=== PATIENT | male | born 1970 | race Caucasian/White ===

== ENCOUNTER 2018-04-19 16:52 | Observation (INO) | payer OTHER ==
[2018-04-19 17:26] LABS: #Eosinphils 0.1 thou/uL (0.0-0.7); #Lymphocytes 1.4 thou/uL (1.20-3.40); #Monocytes 0.5 thou/uL (0.11-0.59); #Neutrophils 3.5 thou/uL (1.40-6.50); %Basophils 0.2 % (0.0-1.0); %Eosinophils 0.9 % (0.0-10.0); %Lymphocytes 25.8 % (21.0-51.0); %Monocytes 9.3 % (0.0-10.0); %Neutrophils 63.8 % (42.0-75.0); Hemoglobin 15.3 g/dL (14.0-18.0); Mean Corpuscular HGB CONC 34.5 g/dL (32.0-36.0); Mean Corpuscular Volume 98.4 fL (78.0-98.0); Mean Platelet Volume 7.3 fL (7.4-10.4); Platelet Count 208 thou/uL (130-400); Red Blood Cell (RBC) Count 4.51 mill/uL (4.70-6.10); White Blood Cell (WBC) Count 5.5 thou/uL (4.8-10.8)
--- NOTE | 2018-04-19 17:36 | RAD ---
PORTABLE UPRIGHT FRONTAL CHEST RADIOGRAPH: 04/19/18 COMPARISON: 03/30/17. HISTORY: Chest pain. FINDINGS: No pneumothorax, pleural fluid, focal consolidation or alveolar edema. Heart and mediastinal contours are unremarkable. There is degenerative change involving bilateral acromioclavicular joints. IMPRESSION: No acute findings. POS: [facility]
[2018-04-19 17:50] LABS: ALT (SGPT) 24 U/L (8-55); AST (SGOT) 23 U/L (5-34); Albumin 4.6 g/dL (3.5-5.0); Alkaline Phosphatase 119 U/L (40-150); Anion Gap 15 mmol/L (10-20); BUN (Urea Nitrogen) 10 mg/dL (8.9-20.6); CK (CPK) 224 U/L (30-200); Calc. Creatinine Clearance 0 mL/min (70-130); Calcium 9.4 mg/dL (7.8-10.44); Carbon Dioxide 21 mmol/L (22-29); Chloride 108 mmol/L (98-107); Estimated GFR-MDRD Greater than 90; Globulin 2.6 g/dL (2.4-3.5); Glucose 86 mg/dL (70-105); Lipase 41 U/L (8-78); Potassium 4.2 mmol/L (3.5-5.1); Protein, Total 7.2 g/dL (6.0-8.3); Sodium 140 mmol/L (136-145)
[2018-04-19 17:53] LABS: CKMB 2.3 ng/mL (0-6.6); Troponin I Less than 0.010 ng/mL (< 0.028)
[2018-04-19] MEDS ORDERED: Nitroglycerin 2% Ointment 1 INCH/1 GM Packet ONE (18:52)
[2018-04-19] MEDS ORDERED: Acetaminophen 500 MG TAB ONE (18:52)
[2018-04-19] MEDS ORDERED: Ondansetron HCl/PF 4 MG/2 ML Vial IVP PRN (21:51)
[2018-04-19] MEDS ORDERED: Ondansetron ODT 4 MG TAB SL PRN (21:51)
[2018-04-19] MEDS ORDERED: Acetaminophen 325 MG TAB PO PRN (21:51)
[2018-04-19 22:05] VITALS: BMI 29.0
[2018-04-19 22:09] LABS: Troponin I Less than 0.010 ng/mL (< 0.028)
--- NOTE | 2018-04-19 23:24 | PDOC.FPRHP ---
- History of Present Illness Chief Complaint: chest pain History of Present Illness: 47 yo M [facility] with a PMH of ND, stent placement in Sep 2017 ([facility]), HTN, HLD present for sharp 10/10 pain in L chest pain radiating down the left arm and into left neck. Pt ascribes numbness, burning, and decreased strength in L arm. He has had the pain for the past two months, and it worsened this afternoon. He went to the [facility] and his blood pressure was high. He was given nitroglycerin which reduced the pain. Associated sx is sweating. Laying on the floor helps the pain to go away. Pain worse when he stands and with ambulating. In the ED his troponins, EKG, and CXR were all negative. ED Course: In the ER, his troponins, EKG, and CXR were all negative, and CBC and BMP were normal. - Allergies/Adverse Reactions Allergies Allergy/AdvReac Type Severity Reaction Status Date / Time Cephalosporins Allergy Verified 01/20/15 01:32 influenza virus vaccine, Allergy Verified 04/19/18 22:08 specific [influenza virus vacc,specific] iodine Allergy Verified 01/20/15 01:32 Penicillins Allergy Verified 04/19/18 22:08 pneumococcal vaccine Allergy Verified 01/20/15 01:32 Sulfa (Sulfonamide Allergy Verified 01/20/15 03:43 Antibiotics) Tetanus Vaccines and Toxoid Allergy Verified 01/20/15 01:32 [Tetanus Vaccines & Toxoid] - Home Medications Medication Instructions Recorded Confirmed Type Aspirin [Aspirin EC] 81 mg PO DAILY 01/20/15 04/19/18 History Atorvastatin Calcium 80 mg PO HS 01/20/15 04/19/18 History Clopidogrel Bisulfate [Plavix] 75 mg PO QAM #0 tab 01/20/15 04/19/18 Rx Nitroglycerin [Nitrostat] 0.4 mg SL Q5MIN PRN 01/20/15 04/19/18 History Omeprazole [Prilosec] 20 mg PO BID 01/20/15 04/19/18 History Ranitidine HCl 150 mg PO HS 01/20/15 04/19/18 History Terazosin HCl [Hytrin] 5 mg PO HS 01/20/15 04/19/18 History Carvedilol [Coreg] 3.125 mg PO BID 04/19/18 04/19/18 History Isosorbide Mononitrate [Isosorbide 60 mg PO DAILY 04/19/18 04/19/18 History Mononitrate ER] Lisinopril [Zestril] 5 mg PO DAILY 04/19/18 04/19/18 History Sertraline HCl [Zoloft] 50 mg PO DAILY 04/19/18 04/19/18 History - History PMHx: ND x5, stent placement in Dec in [facility], HLD, Gerd, HTN, BPH PSHx: L knee surgery FHx: DM in aunts and uncles; Maternal gma ND, paternal gma with pacemaker, grandparents of ND; Father nasal cancer Social: 16 yr pack hx (from age [age]); No alcohol; hx of drug abuse heroin, cocaine, marinua - Review of Systems General: reports: night sweats. denies: fever/chills, weight/appetite/sleep changes Eyes: reports: eye pain (occasional Rt eye pain from previous eye injury) ENT: denies: nasal congestion, rhinorrhea Respiratory: reports: exercise intolerance. denies: cough, congestion, shortness of breath Cardiovascular: reports: chest pain, palpitation. denies: edema Gastrointestinal: reports: nausea, constipation. denies: vomiting, diarrhea, abdominal pain, GI bleeding Genitourinary: reports: incontinence. 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), other ( Bilateral temporal headache occasionally) Psychological: reports: depression (well controlled with medication) - Vital signs BP: [153/91] HR: [82] RR: [18] Tmax: [98.2] Pox: [96]% on [RA] Wt: [86.5] - Physical Exam Constitutional: NAD, awake, alert and oriented HEENT: normocephalic and atraumatic, PERRLA, no scleral icterus, MMM, oropharynx clear Neck: supple, no LAD Chest: no lesions, other (reproducible pain to left of sternum on palpation) Heart: RRR, normal S1/S2, no murmurs/rubs/gallops, pulses present, no edema Lungs: CTAB, no respiratory distress, good air movement, no rales/rhonchi, no wheezing, no retractions Abdomen: soft, bowel sounds present, no masses/distention -Abdomen: small midline hernia superior to umbilicus, LLQ pain on palpation (no rebound pain or rigidity) Musculoskeletal: normal structure, normal tone Neurological: normal sensation, other (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 4/5, right fishing vessel captain strength 5/5.) Skin: good turgor, capillary refill <2 seconds, no jaundice, other (mild clubbing of nails) Heme/Lymphatic: no unusual bruising or bleeding Psychiatric: normal mood and affect, good judgment and insight, intact recent and remote memory FMR H&P: Results - Labs Result Diagrams: 04/19/18 17:19 04/19/18 17:19 Lab results: WBC 5.5 thou/uL (4.8-10.8) 04/19/18 17:19 Hgb 15.3 g/dL (14.0-18.0) 04/19/18 17:19 Hct 44.4 % (42.0-52.0) 04/19/18 17:19 MCV 98.4 fL (78.0-98.0) H 04/19/18 17:19 Plt Count 208 thou/uL (130-400) 04/19/18 17:19 Neutrophils % 63.8 % (42.0-75.0) 04/19/18 17:19 Sodium 140 mmol/L (136-145) 04/19/18 17:19 Potassium 4.2 mmol/L (3.5-5.1) 04/19/18 17:19 Chloride 108 mmol/L (98-107) H 04/19/18 17:19 Carbon Dioxide 21 mmol/L (22-29) L 04/19/18 17:19 BUN 10 mg/dL (8.9-20.6) 04/19/18 17:19 Creatinine 0.84 mg/dL (0.6-1.3) 04/19/18 17:19 Glucose 86 mg/dL (70-105) 04/19/18 17:19 Calcium 9.4 mg/dL (7.8-10.44) 04/19/18 17:19 Total Bilirubin 1.0 mg/dL (0.2-1.2) 04/19/18 17:19 AST 23 U/L (5-34) 04/19/18 17: ALT 24 U/L (8-55) 04/19/18 17:19 Alkaline Phosphatase 119 U/L (40-150) 04/19/18 17:19 Creatine Kinase 224 U/L (30-200) H 04/19/18 17:19 CK-MB (CK-2) 2.3 ng/mL (0-6.6) 04/19/18 17:19 B-Natriuretic Peptide 34.4 pg/mL (0-100) 04/19/18 17: Serum Total Protein 7.2 g/dL (6.0-8.3) 04/19/18 17: Albumin 4.6 g/dL (3.5-5.0) 04/19/18 17: Lipase 41 U/L (8-78) 04/19/18 17:19 - EKG Interpretation EKG: sinus rhythm - Radiology Interpretation Chest x-ray Status: report reviewed by me (normal) FMR H&P: A/P - Problem List (1) Stable angina Status: Acute Code(s): I20.8 - OTHER FORMS OF ANGINA PECTORIS - Plan 47 yo M with Typical chest pain vs costochondritis 1. Typical Chest Pain -CXR and EKG nl, trop neg x2 -Heart score 5 -monitor in Telemetry Obs -get records from [facility] -consider stress test in the morning -hold coreg -Restart home medications 2. HTN -coreg held for potential stress test in morning 3. GERD 4. HLD -fasting lipid panel in AM 5. BPH Full code FMR H&P: Upper Level - Pertinent history 47 yr old white male with PMH of CAD s/p 4 stents, HTN, GERD who presents for chest pain. Patient states this chest pain has been going on for months. Earlier today it woke him from his sleep, which it often does most recently last night. He describes the pain as someone stabbing him in his left chest. It radiates to his left arm. He gets diaphoretic but also reports frequent diaphoresis in his sleep. Denies vomiting or nausea. He states it does get better with nitro, but not completely relieved. He reports having a nerve study for the pain in his arm. - Pertinent findings Gen: NAD, resting comfortably in bed. Chest: Reproducible chest pain in mid left sternal border Cardiac: RRR, no M/R/G Lungs: CTAB, no wheezes, rhales, rhonchi Abdomen: mild LLQ tenderness, no EXT: no edema in BLE, 2+ post tibial pulses EKG: NSR, no evidence for old ischemia, no acute ST changes. CXR- NAD - Plan Date/Time: 04/19/18 1744 I, [Gabbi Dietz], have evaluated this patient and agree with findings/plan as outlined by technology risk intern resident. Pertinent changes/additions are listed here. 47 yr old Male with chest pain Atypical Chest Pain -reproducible chest pain on exam, patient points to his pain with single finger -troponin x 3 negative, neg EKG -Patient has multiple presentations of similar chest pain and has been transferred to [facility] -consider musculoskeletal vs GERD vs pleurisy -Heart score = 4, with significant history -cont chronic nitrate therapy -will obtain records from recent hospitalization in [facility] [facility]. -hold B barak in case need for stress test -cont home meds -AM FLP CAD s/p 4 stent placement -obtain records -chest pain not typical for ACS -cont Plavix and aspirin HTN -cont home meds with exception of coreg for now BPH -cont terazosin HLD -cont high intensity statin Gerd -cont protonix/ ranitidine Attending Addendum - Attending Addendum Date/Time: 04/21/18 0848 I personally evaluated the patient and discussed the management with Dr. Solis and Dr. Dietz I agree with the History, Examination, Assessment and Plan documented above with any addition or exceptions noted below. 47 yo male with CAD presents with stable angina for ACS rule out. Currently pain is reproducible on exam. Patient does report however that initial pain was relieved with nitro. Will obtain records from last stress/ cath. Continue tele monitoring. Repeat EKG and Chi. Possible stress in AM. Lonny
[2018-04-19] MEDS ORDERED: Nitroglycerin 0.4 MG TAB (25 Tab Bottle) PO PRN (23:43)
[2018-04-19] MEDS ORDERED: Calcium Carbonate 500 MG ChewTAB PO PRN (23:43)
[2018-04-20] MEDS ORDERED: Nitroglycerin 0.4 MG TAB (25 Tab Bottle) SL PRN (00:08)
[2018-04-20 00:20] LABS: Troponin I Less than 0.010 ng/mL (< 0.028)
[2018-04-20] MEDS ORDERED: Atorvastatin Calcium 40 MG TAB PO SCH ×2 (00:20→21:00)
[2018-04-20] MEDS ORDERED: Famotidine 20 MG TAB PO SCH ×2 (00:20→21:00)
[2018-04-20] MEDS ORDERED: Terazosin HCl 5 MG CAP PO SCH ×2 (00:20→21:00)
[2018-04-20 05:12] LABS: Cardiac Risk 2.9 (Less than 4.5)
--- NOTE | 2018-04-20 08:51 | PDOC.FM ---
- Subjective Subjective: Patient reports that he still has chest pain in the L side of his chest that is a sharp, stabbing pain that radiates to the back associated with a burning pain in his arm. He denies any SOB. He denies any fevers or chills. - Objective MAR Reviewed: Yes Vital Signs & Weight: Vital Signs (12 hours) Temp Pulse Resp BP BP BP Pulse Ox 04/20/18 07:43 97.6 F 69 16 138/77 97 04/20/18 04:22 97.6 F 72 16 135/83 98 04/20/18 02:37 68 18 107/67 96 04/20/18 02:30 88 18 113/62 96 04/20/18 02:14 75 18 132/77 95 04/19/18 23:31 98.2 F 68 16 129/76 95 04/19/18 21:53 98.2 F 82 18 153/91 H 96 Weight Weight 86.5 kg I&O: 04/19/18 04/20/18 04/21/18 06:59 06:59 06:59 Intake Total 480 Balance 480 Result Diagrams: 04/19/18 17:19 04/19/18 17:19 <Gabbi Manzo - Last Filed: 04/20/18 08:49> - Objective Vital Signs & Weight: Vital Signs (12 hours) Temp Pulse Resp BP BP BP Pulse Ox 04/20/18 09:30 97.6 F 69 16 04/20/18 09:27 69 04/20/18 07:43 97.6 F 69 16 138/77 97 04/20/18 04:22 97.6 F 72 16 135/83 98 04/20/18 02:37 68 18 107/67 96 04/20/18 02:30 88 18 113/62 96 04/20/18 02:14 75 18 132/77 95 Weight Weight 86.5 kg I&O: 04/19/18 04/20/18 04/21/18 06:59 06:59 06:59 Intake Total 480 Balance 480 Result Diagrams: 04/19/18 17:19 04/19/18 17:19 <Charanjit Lawrence - Last Filed: 04/20/18 13:06> Phys Exam - Physical Examination Constitutional: NAD HEENT: moist MMs Respiratory: no wheezing, no rales, no rhonchi, clear to auscultation bilateral Cardiovascular: RRR, no significant murmur, no rub tender to palpation over left mid-chest Gastrointestinal: soft, no distention, positive bowel sounds mildly tender in ADRIEL region Musculoskeletal: no edema, pulses present Neurological: non-focal, moves all 4 limbs Psychiatric: normal affect, A&O x 3 Skin: normal turgor, cap refill <2 seconds <Gabbi Manzo - Last Filed: 04/20/18 08:49> Dx/Plan (1) Stable angina Code(s): I20.8 - OTHER FORMS OF ANGINA PECTORIS Status: Acute (2) CAD (coronary artery disease) Code(s): I25.10 - ATHSCL HEART DISEASE OF [place] CORONARY ARTERY W/O ANG PCTRS Status: Acute QualifierTitle: Coronary Disease-Associated Artery/Lesion type: [place] artery [place] vs. transplanted heart: [place] heart Associated angina: with stable angina Qualified Code(s): I25.118 - Atherosclerotic heart disease of [place] coronary artery with other forms of angina pectoris (3) HTN (hypertension) Code(s): I10 - ESSENTIAL (PRIMARY) HYPERTENSION Status: Acute QualifierTitle: Hypertension type: essential hypertension Qualified Code( s): I10 - Essential (primary) hypertension (4) HLD (hyperlipidemia) Code(s): E78.5 - HYPERLIPIDEMIA, UNSPECIFIED Status: Acute QualifierTitle: Hyperlipidemia type: unspecified Qualified Code(s): E78.5 - Hyperlipidemia, unspecified (5) GERD (gastroesophageal reflux disease) Code(s): K21.9 - GASTRO-ESOPHAGEAL REFLUX DISEASE WITHOUT ESOPHAGITIS Status: Acute QualifierTitle: Esophagitis presence: esophagitis presence not specified Qualified Code(s): K21.9 - Gastro-esophageal reflux disease without esophagitis (6) BPH (benign prostatic hyperplasia) Code(s): N40.0 - BENIGN PROSTATIC HYPERPLASIA WITHOUT LOWER URINRY TRACT SYMP Status: Acute QualifierTitle: Lower urinary tract symptom presence: symptoms present Lower urinary tract symptom detail: urinary hesitancy Qualified Code(s): N40.1 - Benign prostatic hyperplasia with lower urinary tract symptoms; R39.11 - Hesitancy of micturition; R39.11 - Hesitancy of micturition (7) Polysubstance abuse Code(s): F19.10 - OTHER PSYCHOACTIVE SUBSTANCE ABUSE, UNCOMPLICATED Status: Acute - Plan Plan: 1. Chest pain 2/2 Stable angina vs costochondritis CXR and EKG nl, trop neg x3. Heart score 4 -monitor in Telemetry Obs -get records from [facility] -Restart home medications -Consult cards due to patient's multiple risk factors and past h/o CAD 2. HTN -cont home meds, but coreg held in case stress is done 3. GERD -cont home meds 4. HLD FLP WNL -Cont home meds 5. BPH -Cont home meds 6. Polysubstance abuse Pt with h/o tobacco, marijuana, cocaine, and heroine abuse. Currently in senior living. -Auditor In Charge <Gabbi Manzo - Last Filed: 04/20/18 08:49> Attending Addendum - Attending Addendum Date/Time: 04/20/18 2527 I personally evaluated the patient and discussed the management with . I agree with and repeated the History, Examination, Assessment and Plan documented above with any addition or exceptions noted below. No pain currently. Unremarkable exam exam some c-c junction tenderness on left and +avalos/neers on left. Await stress results. Continue RF management. Low suspicion for dissection. <Charanjit Lawrence - Last Filed: 04/20/18 13:06>
[2018-04-20] MEDS ORDERED: Enoxaparin Sodium 40 MG/0.4 ML SYRINGE SC SCH (09:00)
[2018-04-20] MEDS: Clopidogrel Bisulfate 75 MG TAB PO SCH (09:27)
[2018-04-20] MEDS: Lisinopril 5 MG TAB PO SCH (09:27)
[2018-04-20] MEDS: Aspirin 81 mg Enteric Coated Tablet PO SCH (09:27)
[2018-04-20] MEDS: Acetaminophen 325 MG TAB PO PRN ×2 (10:12→22:33)
[2018-04-20] MEDS ORDERED: Regadenoson 0.4 MG/5 ML SYRINGE ONE (12:47)
--- NOTE | 2018-04-20 16:26 | EKG ---
Test Reason : Blood Pressure : / mmHG Vent. Rate : 073 BPM Atrial Rate : 073 BPM P-R Int : 142 ms QRS Dur : 102 ms QT Int : 416 ms P-R-T Axes : 055 019 018 degrees QTc Int : 458 ms Normal sinus rhythm Normal ECG Confirmed by MILTON HEBERT ([id number]) on 04/20/2018 4:26:03 PM Referred By: ANDIE BUITRAGO *r Confirmed By:MILTON HEBERT
--- NOTE | 2018-04-20 16:35 | NM ---
CARDIAC SPECT: 04/20/18 HISTORY: 47-year-old male with chest pain. Coronary artery disease. Stent placement. Hypertension. TECHNIQUE: A myocardial perfusion scan is performed using the single isotope one day protocol with technetium 99 m Sestamibi. 9 millicuries was injected intravenously for the rest exam followed by 27 millicuries fo r the stress study. Pharmacologic stress with Lexiscan was monitored and interpreted by Dr. Mcfadden. FINDINGS: Homogeneous tracer distribution is seen in the myocardial segments on stress and rest images without fixed or reversible defects. GATED SPECT LVEF: 64%. WALL MOTION EXAM: Normal. IMPRESSION: Normal myocardial perfusion scan. POS: [facility]
[2018-04-20] MEDS ORDERED: predniSONE 20 MG TAB PO SCH ×2 (18:45→19:00)
[2018-04-20] MEDS ORDERED: Communication Order-Pharmacy FS SCH ×2 (19:00)
[2018-04-20] MEDS: Famotidine 20 MG TAB PO SCH (19:44)
[2018-04-21] MEDS: Famotidine 20 MG TAB PO SCH ×2 (00:49→07:30)
[2018-04-21] MEDS ORDERED: predniSONE 20 MG TAB PO SCH ×4 (01:00→13:00)
--- NOTE | 2018-04-21 01:10 | CON ---
DATE OF CONSULTATION: 04/20/2018 REASON FOR CONSULTATION: Chest pain. HISTORY OF PRESENT ILLNESS: Mr. Cook is a 47-year-old gentleman. [facility]. It feels sharp like a knife or something very sharp sticking him in the chest in left anterior and left posterior. The description is atypical for pain, but he says id entical the pain he had prior to previous stent implants. He has had 4 stents placed. From the note s, he has had stents in the LAD and the right coronary artery in 09/2017. He had stents in the right coronary artery apparently at the hospital in [place]. The patient had subsequent pain since then what thought to be noncardiac. The patient was brought here and said the pain was identical to when he had a stent placed. MEDICATIONS: Please see list. They do include aspirin and Plavix as well as statin therapy, and als o on Protonix. ALLERGIES: Include IODINE. REVIEW OF SYSTEMS: Constitutional: No significant weight gain or loss. Vision: No changes. Heari ng: No changes. Pulmonary: No cough or wheezing. Gastrointestinal: No nausea, vomiting, diarrhea . Skin: No rashes. Neurologic: No unilateral weakness or numbness. Psychiatric: No unusual depr ession or anxiety. PHYSICAL EXAMINATION: GENERAL: A pleasant 47-year-old man in no distress. VITAL SIGNS: Blood pressure 139/76, pulse 68 and regular. HEENT: Eyes, sclerae nonicteric. Mouth, mucous membranes are moist. NECK: Supple, no lymphadenopathy. LUNGS: Clear. No wheezing, rales or rhonchi. CARDIAC: Normal S1, normal S2. There is no murmur, rub or gallop. ABDOMEN: Soft, nontender, no hepatosplenomegaly. EXTREMITIES: Warm, dry. No clubbing or cyanosis. There is no edema. Good peripheral pulses. LABORATORY AND X-RAY FINDINGS: Troponin levels were negative. Stress test was normal. ASSESSMENT: 1. Chest pain, somewhat atypical for angina. He says this is identical to the pain that he had prio r to previous stents implanted. 2. Hypertension. 3. Hypercholesterolemia. PLAN: The patient would like to have the most definitive test. We will proceed to cardiac catheteri zation. Discussed risks of stroke, heart attack, iodine allergy, loss of blood supply to the leg or kidney, stent thrombosis, stent restenosis. He understands and wishes to proceed.
[2018-04-21] MEDS ORDERED: Diazepam 5 MG TAB PO SCH ×2 (05:00→07:00)
[2018-04-21] MEDS ORDERED: Sodium Chloride 0.9% 1,000 ML IV SCH ×2 (07:00)
[2018-04-21] MEDS: Clopidogrel Bisulfate 75 MG TAB PO SCH (07:30)
[2018-04-21] MEDS: Lisinopril 5 MG TAB PO SCH (07:30)
[2018-04-21] MEDS: Aspirin 81 mg Enteric Coated Tablet PO SCH (07:30)
[2018-04-21] MEDS ORDERED: Iopamidol 370 76% 100 ML VIAL ONE (07:49)
[2018-04-21] MEDS ORDERED: Carvedilol 3.125 MG TAB PO SCH (08:00)
[2018-04-21] MEDS ORDERED: Fentanyl 100 MCG/2 ML VIAL ONE (08:16)
[2018-04-21] MEDS ORDERED: Midazolam HCl 2 mg/2 ml Vial ONE (08:17)
[2018-04-21] MEDS ORDERED: Lidocaine 1% (PF) 30 ML VIAL ONE (08:17)
--- NOTE | 2018-04-21 08:49 | PDOC.FM ---
- Subjective Subjective: Patient reports still having some chest pain while lying in bed. It is a sharp, stabbing pain that radiates to his back. He also reports some associated pain that now goes down his left leg. He denies any fevers, chills, SOB. - Objective MAR Reviewed: Yes Vital Signs & Weight: Vital Signs (12 hours) Temp Pulse Resp BP BP BP Pulse Ox 04/21/18 07:48 97.8 F 84 16 04/21/18 07:46 97.4 F L 75 20 121/72 94 L 04/21/18 07:30 84 119/73 04/21/18 04:05 97.8 F 84 16 119/73 94 L 04/21/18 00:40 97.8 F 62 16 122/66 93 L Weight Weight 86.545 kg I&O: 04/20/18 04/21/18 04/22/18 06:59 06:59 06:59 Intake Total 480 1080 Balance 480 1080 Result Diagrams: 04/19/18 17:19 04/19/18 17:19 <Gabbi Manzo - Last Filed: 04/21/18 08:45> - Objective Vital Signs & Weight: Vital Signs (12 hours) Temp Pulse Resp BP BP BP Pulse Ox 04/21/18 11:48 66 16 111/52 L 96 04/21/18 09:50 97.6 F 70 20 104/61 96 04/21/18 09:39 70 16 104/61 04/21/18 07:48 97.8 F 84 16 04/21/18 07:46 97.4 F L 75 20 121/72 94 L 04/21/18 07:30 84 119/73 04/21/18 04:05 97.8 F 84 16 119/73 94 L Weight Weight 86.545 kg I&O: 04/20/18 04/21/18 04/22/18 06:59 06:59 06:59 Intake Total 480 1080 Output Total 900 Balance 480 1080 -900 Result Diagrams: 04/19/18 17:19 04/19/18 17:19 <Jerry Velasquez - Last Filed: 04/21/18 14:30> Phys Exam - Physical Examination Constitutional: NAD HEENT: moist MMs, sclera anicteric Respiratory: no wheezing, no rales, no rhonchi, clear to auscultation bilateral Cardiovascular: RRR, no significant murmur, no rub Gastrointestinal: soft, non-tender, no distention, positive bowel sounds Musculoskeletal: no edema, pulses present Neurological: non-focal, moves all 4 limbs Psychiatric: normal affect, A&O x 3 Skin: normal turgor, cap refill <2 seconds <Gabbi Manzo - Last Filed: 04/21/18 08:45> Dx/Plan (1) Stable angina Code(s): I20.8 - OTHER FORMS OF ANGINA PECTORIS Status: Acute (2) CAD (coronary artery disease) Code(s): I25.10 - ATHSCL HEART DISEASE OF [place] CORONARY ARTERY W/O ANG PCTRS Status: Acute QualifierTitle: Coronary Disease-Associated Artery/Lesion type: [place] artery [place] vs. transplanted heart: [place] heart Associated angina: with stable angina Qualified Code(s): I25.118 - Atherosclerotic heart disease of [place] coronary artery with other forms of angina pectoris (3) HTN (hypertension) Code(s): I10 - ESSENTIAL (PRIMARY) HYPERTENSION Status: Acute QualifierTitle: Hypertension type: essential hypertension Qualified Code( s): I10 - Essential (primary) hypertension (4) HLD (hyperlipidemia) Code(s): E78.5 - HYPERLIPIDEMIA, UNSPECIFIED Status: Acute QualifierTitle: Hyperlipidemia type: unspecified Qualified Code(s): E78.5 - Hyperlipidemia, unspecified (5) GERD (gastroesophageal reflux disease) Code(s): K21.9 - GASTRO-ESOPHAGEAL REFLUX DISEASE WITHOUT ESOPHAGITIS Status: Acute QualifierTitle: Esophagitis presence: esophagitis presence not specified Qualified Code(s): K21.9 - Gastro-esophageal reflux disease without esophagitis (6) BPH (benign prostatic hyperplasia) Code(s): N40.0 - BENIGN PROSTATIC HYPERPLASIA WITHOUT LOWER URINRY TRACT SYMP Status: Acute QualifierTitle: Lower urinary tract symptom presence: symptoms present Lower urinary tract symptom detail: urinary hesitancy Qualified Code(s): N40.1 - Benign prostatic hyperplasia with lower urinary tract symptoms; R39.11 - Hesitancy of micturition; R39.11 - Hesitancy of micturition (7) Polysubstance abuse Code(s): F19.10 - OTHER PSYCHOACTIVE SUBSTANCE ABUSE, UNCOMPLICATED Status: Acute - Plan Plan: Atypical chest pain 2/2 Stable angina vs costochondritis CXR and EKG nl, trop neg x3. Heart score 4. Stress test negative. -get records from [facility] -Consulted cards due to patient's multiple risk factors and past h/o CAD, appreciate recs -Plan for cardiac cath today -Aspirin, nitro CAD s/p 4 stents -Continue aspirin and plavix -Imdur HTN -cont imdur, lisinopril, carvedilol GERD -protonix HLD FLP WNL -Cont home atorvastatin BPH -Cont terazosin Polysubstance abuse Pt with h/o tobacco, marijuana, cocaine, and heroine abuse. [facility] in [facility]. -Correctional Manager <Gabbi Manzo - Last Filed: 04/21/18 08:45> Attending Addendum - Attending Addendum Date/Time: 04/21/18 0142 I personally evaluated the patient and discussed the management with Dr. Manzo I agree with the History, Examination, Assessment and Plan documented above with any addition or exceptions noted below. No further inpatient evaluation needed. Patient s/p Heart Catherization and self reports WNL. Patient should be able for dismissal later this pm if ok with Cardiology. <Jerry Velasquez - Last Filed: 04/21/18 14:30>
[2018-04-21] MEDS ORDERED: Nitroglycerin 100MG/250ML BOT 250 ML ONE (09:18)
[2018-04-21] MEDS ORDERED: Acetaminophen/Codeine 30-300mg Tablet PO PRN ×2 (09:38)
[2018-04-21] MEDS ORDERED: traMADol HCl 50 MG TAB PO PRN (09:38)
[2018-04-21] MEDS ORDERED: Nitroglycerin 0.4 MG TAB (25 Tab Bottle) SL PRN (09:38)
[2018-04-21] MEDS ORDERED: Sodium Chloride 0.9% 200 ML IV SCH (09:45)
[2018-04-21 10:05] VITALS: TEMP 97.6
[2018-04-21] MEDS ORDERED: Ketorolac Tromethamine 30 MG/ML VIAL IVP SCH (11:00)
[2018-04-21 11:49] VITALS: BP 111/52
--- NOTE | 2018-04-23 22:57 | DIS-2 ---
DATE OF ADMISSION: 04/19/2018 DATE OF DISCHARGE: 04/21/2018 ADMITTING ATTENDING: Nilda Eid M.D. DISCHARGE ATTENDING: Jerry Velasquez M.D. ADMITTING RESIDENT: Elaine Solis M.D. DISCHARGE RESIDENT: Gabbi Manzo M.D. CONSULTATIONS: Dr. Mcfadden with Cardiology. PROCEDURES: Cardiac catheterization on 04/21/2018 and a nuclear stress test on 04/20/2018. PRIMARY DIAGNOSES: 1. Atypical chest pain, likely due to costochondritis. 2. Coronary artery disease, status post 4 stents. SECONDARY DIAGNOSES: 1. Hypertension. 2. Gastroesophageal reflux disease. 3. Hyperlipidemia. 4. Benign prostatic hypertrophy. 5. Polysubstance abuse. DISCHARGE MEDICATIONS: 1. Aspirin 81 mg p.o. daily. 2. Atorvastatin 80 mg p.o. at bedtime. 3. Carvedilol 3.125 mg p.o. b.i.d. 4. Plavix 75 mg p.o. q.a.m. 5. Isosorbide mononitrate ER 60 mg p.o. daily. 6. Lisinopril 5 mg p.o. daily. 7. Nitroglycerin 0.4 mg sublingual q.5 minutes p.r.n. chest pain. 8. Omeprazole 20 mg p.o. b.i.d. 9. Ranitidine 150 mg p.o. at bedtime. 10. Sertraline 50 mg p.o. daily. 11. Terazosin 5 mg p.o. at bedtime. DISCONTINUED MEDICATIONS: None. HISTORY OF PRESENT ILLNESS AND HOSPITAL COURSE: This is a 47-year-old male, who presented from senior care with chest pain. The patient described it as a sharp stabbing pain in the left side of his chest that went to his back, associated with left arm numbness. The patient had a recent history of 2 stents being placed in 09/2017. The patient also had a more remote history of two other stents being placed in 2006. The patient has high risk for coronary artery disease and due to tobacco use, prior history of cocaine use, hypertension, hyperlipidemia. Dr. Mcfadden with Cardiology was consulted to determine if they would like to proceed with a stress versus a cardiac catheterization. Dr. Mcfadden asked us to proceed with the stress test first. The patient had a stress test done that came back normal. The patient also had 3 normal sets of troponins. The patient then desired definitive therapy and so a cath was done which also came back normal. The pain was likely more musculoskeletal in nature. DISPOSITION: Stable. DISCHARGE INSTRUCTIONS: 1. Location: Shelter. 2. Diet: Heart healthy. 3. Activity: As tolerated. 4. Followup: Follow up with PCP within 7-14 days. ALISA
== END 2018-04-21 15:34 ==
LOC: ERS 16:52 → 2SW 21:44
PROVIDERS: ADMIT Student in an Organized Health Care Education/Training Program; ATTEND Student in an Organized Health Care Education/Training Program
DX: R07.89 Other chest pain (principal); I25.118 Atherosclerotic heart disease of native coronary artery with other forms of angina pectoris; I10 Essential (primary) hypertension; K21.9 Gastro-esophageal reflux disease without esophagitis; E78.5 Hyperlipidemia, unspecified; N40.0 Benign prostatic hyperplasia without lower urinary tract symptoms; Z79.82 Long term (current) use of aspirin; Z79.02 Long term (current) use of antithrombotics/antiplatelets; Z79.899 Other long term (current) drug therapy; Z95.5 Presence of coronary angioplasty implant and graft; Z91.041 Radiographic dye allergy status; Z88.0 Allergy status to penicillin; Z88.2 Allergy status to sulfonamides; Z87.891 Personal history of nicotine dependence
CPT/HCPCS: 36415; 71045; 76942; 78452; 80053; 80061; 82550; 82553; 83690; 83880; 84484; 85025; 93005; 93010; 93017; 93458; 96372; 96374; 96375; 99152; A4216; A9500; C1769; G0378; J1644; J1650; J1885; J2001; J2250; J2270; J2785; J3010; J7506

== ENCOUNTER 2018-04-22 16:22 | Observation (INO) | payer OTHER ==
[~2018-04-22 16:22] MED LIST: ISOVUE-370 76%-LOCM 1 ML ONE
[2018-04-22 17:03] LABS: #Lymphocytes 2.4 thou/uL (1.20-3.40); #Neutrophils 7.1 thou/uL (1.40-6.50); %Basophils 0.2 % (0.0-1.0); %Eosinophils 0.1 % (0.0-10.0); %Lymphocytes 22.4 % (21.0-51.0); %Monocytes 9.7 % (0.0-10.0); %Neutrophils 67.7 % (42.0-75.0); Hemoglobin 14.5 g/dL (14.0-18.0); Mean Corpuscular HGB CONC 35.9 g/dL (32.0-36.0); Mean Corpuscular Hemoglobin 35.4 pg (27.0-31.0); Mean Corpuscular Volume 98.7 fL (78.0-98.0); Mean Platelet Volume 7.1 fL (7.4-10.4); Platelet Count 175 thou/uL (130-400); RBC Distribution Width 12.1 % (11.5-14.5); Red Blood Cell (RBC) Count 4.08 mill/uL (4.70-6.10); White Blood Cell (WBC) Count 10.5 thou/uL (4.8-10.8)
[2018-04-22 17:23] LABS: ALT (SGPT) 24 U/L (8-55); AST (SGOT) 22 U/L (5-34); Albumin 4.5 g/dL (3.5-5.0); Alkaline Phosphatase 109 U/L (40-150); Anion Gap 15 mmol/L (10-20); BUN (Urea Nitrogen) 17 mg/dL (8.9-20.6); Bilirubin, Total 0.7 mg/dL (0.2-1.2); Calc. Creatinine Clearance 0 mL/min (70-130); Carbon Dioxide 24 mmol/L (22-29); Chloride 107 mmol/L (98-107); Estimated GFR-MDRD Greater than 90; Globulin 2.5 g/dL (2.4-3.5); Glucose 84 mg/dL (70-105); Potassium 3.8 mmol/L (3.5-5.1); Sodium 142 mmol/L (136-145)
[2018-04-22 17:27] LABS: CKMB 1.4 ng/mL (0-6.6); Troponin I Less than 0.010 ng/mL (< 0.028)
--- NOTE | 2018-04-22 17:32 | RAD ---
TWO VIEWS CHEST: 04/22/18 PROVIDED CLINICAL HISTORY: Chest pain. FINDINGS: Comparison 09/23/16. The cardiac and mediastinal silhouette is within normal limits. The lungs appear clear. No pleural fl uid or pneumothorax apparent. Degenerative changes are seen involving the thoracic spine. IMPRESSION: No evidence for an acute cardiopulmonary process. POS: [facility]
[2018-04-22] MEDS ORDERED: Nitroglycerin 2% Ointment 1 INCH/1 GM Packet ONE ×2 (18:05→22:47)
[2018-04-22] MEDS ORDERED: Ondansetron HCl/PF 4 MG/2 ML Vial ONE (18:05)
[2018-04-22] MEDS ORDERED: Acetaminophen 325 MG TAB PO PRN (20:54)
[2018-04-22] MEDS ORDERED: Ondansetron ODT 4 MG TAB SL PRN (20:54)
[2018-04-22] MEDS ORDERED: Ondansetron HCl/PF 4 MG/2 ML Vial IVP PRN (20:54)
--- NOTE | 2018-04-22 21:37 | PDOC.FPRHP ---
- History of Present Illness Chief Complaint: Chest Pain History of Present Illness: 47 yo M from [facility] complaining of chest pain who admitted 04/19 with similar complaints. He describes 10/10 constant stabbing sharp Left sided chest pain, just medial to the nipple, radiating to the back, jaw, and down the left arm associated with numbness and sweating. Pain is 5/10 currently. He noticed the chest pain again last night (04/21) when he went to bed. The pain with other symptoms started at 2PM today while he was sitting doing nothing, so he went to the [facility] and reports his systolic pressure was 160. New onset symptoms today were headaches and floaters. He also describes left and rt sided abdominal pain. Pain relieved with nitro. In his previous admission this week, the patient had a stress test which was showed LVEF - 64% and normal wall motion, and a Cardiac cath which showed "LAD slowing." Pt was admitted to [facility]. - Allergies/Adverse Reactions Allergies Allergy/AdvReac Type Severity Reaction Status Date / Time Cephalosporins Allergy Verified 04/22/18 20:39 influenza virus vaccine, Allergy Verified 04/22/18 20:39 specific [influenza virus vacc,specific] iodine Allergy Verified 04/22/18 20:39 Penicillins Allergy Verified 04/22/18 20:39 pneumococcal vaccine Allergy Verified 04/22/18 20:39 Sulfa (Sulfonamide Allergy Verified 04/22/18 20:39 Antibiotics) Tetanus Vaccines and Toxoid Allergy Verified 04/22/18 20:39 [Tetanus Vaccines & Toxoid] - Home Medications Medication Instructions Recorded Confirmed Type Aspirin [Aspirin EC] 81 mg PO DAILY 01/20/15 04/22/18 History Atorvastatin Calcium 80 mg PO HS 01/20/15 04/22/18 History Clopidogrel Bisulfate [Plavix] 75 mg PO QAM #0 tab 01/20/15 04/22/18 Rx Nitroglycerin [Nitrostat] 0.4 mg SL Q5MIN PRN 01/20/15 04/22/18 History Omeprazole [Prilosec] 20 mg PO BID 01/20/15 04/22/18 History Ranitidine HCl 150 mg PO HS 01/20/15 04/22/18 History Terazosin HCl [Hytrin] 5 mg PO HS 01/20/15 04/22/18 History Carvedilol [Coreg] 3.125 mg PO BID 04/19/18 04/22/18 History Isosorbide Mononitrate [Isosorbide 60 mg PO DAILY 04/19/18 04/22/18 History Mononitrate ER] Lisinopril [Zestril] 5 mg PO DAILY 04/19/18 04/22/18 History Sertraline HCl [Zoloft] 50 mg PO DAILY 04/19/18 04/22/18 History - History PMHx: DE x5, stent placement in Dec in [facility], HLD, Gerd, HTN, BPH PSHx: L knee surgery, Cath 04/21 showed "LAD slowing" (per Dr. Barrera) FHx: DM in aunts and uncles; Maternal gma [place], paternal gma with pacemaker, grandparents of DE; Father nasal cancer Social: 14 yr pack hx (from age [age]); No alcohol; hx of drug abuse heroin, cocaine, marijuana - Review of Systems General: reports: night sweats Eyes: reports: eye pain, vision changes (floaters) Respiratory: reports: shortness of breath, exercise intolerance Cardiovascular: reports: chest pain, palpitation. denies: edema Gastrointestinal: reports: constipation, abdominal pain, GI bleeding (vomiting blood 8 months ago). denies: diarrhea Genitourinary: reports: incontinence Skin: reports: lesions (spider bites earlier this week) Neurological: reports: numbness (down left arm), other (Temporal headache) - Vital signs BP: [143/84] HR: [72] RR: [18] Tmax: [98.5] Pox: [92]% on [RA] Wt: [86.5] - Physical Exam Constitutional: NAD, awake, alert and oriented HEENT: normocephalic and atraumatic, MMM Neck: supple Chest: no-tender to palpation Heart: RRR, normal S1/S2, no murmurs/rubs/gallops, pulses present Lungs: CTAB, no respiratory distress, good air movement, no rales/rhonchi, no wheezing Abdomen: bowel sounds present, no masses/distention, other (TTP and guarding in lower left quadrant, and on right side. Pain was distractible. Rebound negative. ) Musculoskeletal: normal structure, normal tone Skin: good turgor, capillary refill <2 seconds, no jaundice Psychiatric: normal mood and affect, good judgment and insight, intact recent and remote memory -Psychiatric: Pt has distractible belly pain, possible malingering. FMR H&P: Results - Labs Result Diagrams: 04/22/18 16:55 04/22/18 16:55 Lab results: WBC 10.5 thou/uL (4.8-10.8) 04/22/18 16:55 Hgb 14.5 g/dL (14.0-18.0) 04/22/18 16:55 Hct 40.3 % (42.0-52.0) L 04/22/18 16:55 MCV 98.7 fL (78.0-98.0) H 04/22/18 16:55 Plt Count 175 thou/uL (130-400) 04/22/18 16:55 Neutrophils % 67.7 % (42.0-75.0) 04/22/18 16:55 Sodium 142 mmol/L (136-145) 04/22/18 16:55 Potassium 3.8 mmol/L (3.5-5.1) 04/22/18 16:55 Chloride 107 mmol/L (98-107) 04/22/18 16:55 Carbon Dioxide 24 mmol/L (22-29) 04/22/18 16:55 BUN 17 mg/dL (8.9-20.6) 04/22/18 16:55 Creatinine 0.85 mg/dL (0.6-1.3) 04/22/18 16:55 Glucose 84 mg/dL (70-105) 04/22/18 16:55 Calcium 9.0 mg/dL (7.8-10.44) 04/22/18 16:55 Total Bilirubin 0.7 mg/dL (0.2-1.2) 04/22/18 16:55 AST 22 U/L (5-34) 04/22/18 16:55 ALT 24 U/L (8-55) 04/22/18 16:55 Alkaline Phosphatase 109 U/L (40-150) 04/22/18 16:55 CK-MB (CK-2) 1.4 ng/mL (0-6.6) 04/22/18 16:55 B-Natriuretic Peptide 76.1 pg/mL (0-100) 04/22/18 16:55 Serum Total Protein 7.0 g/dL (6.0-8.3) 04/22/18 16:55 Albumin 4.5 g/dL (3.5-5.0) 04/22/18 16:55 trop neg x 2 D-dimer - 0.55 CKMB - 1.4, 1.2 - EKG Interpretation EKG: sinus rhythm - Radiology Interpretation CT scan - chest Status: report reviewed by me (CTA reviewed. No PE or dissection) FMR H&P: A/P - Plan 47 yo M with atypical chest pain vs malingering Atypical chest pain, Stable Angina vs Malingering -Pt with a past medical history of stent placement and DE, presenting for chest pain. Pain does not appear to be an acute DE based on nl CXR and EKG, with Cardiac enzymes all normal. Pt was admitted 04/19 for similar symptoms and at that time his stress test was normal and his cath showed "LAD slowing" but was otherwise normal. High D-dimer with an O2 sat 92% prompted a CTA which was negative for PE or dissection. -Topical nitro and morphine for pain control -Continue aspirin -NPO @ midnight with plan to consult cardiology in the morning 2. Abdominal pain, diffuse -Pt ascribes hx of gastric ulcers and vomiting blood 8 months ago -Pt pain is distractible, concern for malingering -KUB to rule out perforation -FOBT 3. HTN- stable -Continue coreg, lisinopril 4. GERD -protonix 5. HLD -continue lipitor 6. BPH -Continue terazosin 7. Depression -continue home sertraline Code Status: Full Code FMR H&P: Upper Level - Pertinent history 47 y/o M prisoner w/ PMHx of CAD s/p stent placement x5, HTN, HLD, GERD, BPH and recent hospitalization (04/19/18) for CP w/ subsequent negative stress and normal cardiac cath. Pt presents for return of his chest pain around 1400. Reports that his chest pain is the same from his prior hospitalization. Describes it as sharp, left sided, pointing just medial to his left nipple, with radiation into his left neck/jaw and left shoulder/arm. States pain started while he was at rest. Worse with exertion. Improved w/ nitro and morphine per patient. Associated w/ SOB and nausea and sweating. States that his BP was 160 systolic when he went to be checked out at the [facility]. Also complaining of abdominal pain and L-LE pain. Pt was seen and evaluated in the ER with normal EKG and normal cardiac enzymes. Dr. Barrera of cardiology was contacted 2/2 his significant cardiac hx who reviewed the cath images and stated he has some "slowing in the LAD" prompting admission. - Pertinent findings Vitals reviewed, WNL EKG - NSR rate 81 bpm Trop - negative x2 CK-MB - negative x2 Hgb - stable compared to prior admissions PE: GEN: NAD, resting in bed comfortably HEENT: MMM, PERRLA CARDIO: RRR, no murmur. CP not reproducible. Nitro tape on left upper chest GI: Distractable abdominal pain. BS +. PULM: CTA-b/l, no wheezes or rhonci MSK: Full ROM LE b/l, no palpable cords or swelling noted LE b/l - Plan Date/Time: 04/22/182132 ICyn MD, have evaluated this patient and agree with findings/plan as outlined by pricing intern resident. Pertinent changes/additions are listed here. 47 y/o M w/: 1. Atypical chest pain (Angina vs Malingering) -Pt w/ significant cardiac hx w/ multiple stents placed in the past who presented w/ the same sxs at recent hospital admission (04/19-04/21) w/ negative stress and cardiac cath performed by Dr. Mcfadden during this hospital stay. Pt's sxs are concerning for possible cardiac etiology, but it does not appear that he is having any acute infarction at this time w/ negative cardiac enzymes and normal EKG. CP is somewhat relieved by topical nitro so we will continue this PRN for his pain as well as PRN morphine as tylenol is not helping per patient. CTA chest was obtained 2/2 elevated D-dimer obtained in the ER and somewhat low O2 sat at 92% w/ CP. This was negative for PE or dissection. I am concerned that patient may be using his cardiac hx for secondary gain to get time out of [facility]. At this time I am not sure what to make of the "slowing in the LAD" that was conveyed to the ER physician. Although I am concerned for possible malingering, I cannot definitively rule out cardiac involvement at this time so we will continue to treat and work-up appropriately for this. We will continue to trend his cardiac enzymes (Trop and CK-MB) w/ PRN nitro and morphine available for pain control. Continue aspirin and make NPO with plans for Cardiology consult in the AM for further evaluation. 2. Abdominal pain (constipation vs gastric ulcer vs infectious etiology) - Pt endorsing abdominal pain and w/ diffuse abdominal pain on exam, although this was distractable - Reported hx of gastric ulcers - Will obtain KUB to r/o and possible perforation which could be contributing to patient's sxs - Will monitor I/O's - Check FOBT 3. HTN - Cont. home medication, stable 4. HLD - Cont. w/ statin 5. GERD - It appears patient was on H2 barak and PPI - We will cont. PPI and hold H2 barak 6. BPH - Cont. w/ flomax Code Status: Full Code
[2018-04-22 21:44] LABS: CKMB 1.2 ng/mL (0-6.6); Troponin I Less than 0.010 ng/mL (< 0.028)
[2018-04-23 01:07] LABS: Amphetamine Not Detected (NotDetected); Barbiturates Screen Not Detected (NotDetected); Benzodiazepine Screen Detected (NotDetected); Cocaine Metabolite Screen Not Detected (NotDetected); Medtox Control Line Valid? VALID (VALID); Medtox Reader # READER 4; Methadone Not Detected (NotDetected); Methamphetamine Not Detected (NotDetected); Opiate Screen Detected (NotDetected); Oxycodone Screen Not Detected (NotDetected); Phencyclidine (PCP) Not Detected (NotDetected); THC/Cannabinoid Screen Not Detected (NotDetected); Tricyclic Screen Not Detected (NotDetected)
[2018-04-23 01:29] LABS: CKMB 1.6 ng/mL (0-6.6); Troponin I Less than 0.010 ng/mL (< 0.028)
[2018-04-23 05:06] LABS: #Lymphocytes 2.5 thou/uL (1.20-3.40); #Monocytes 0.7 thou/uL (0.11-0.59); #Neutrophils 4.8 thou/uL (1.40-6.50); %Basophils 0.3 % (0.0-1.0); %Eosinophils 0.3 % (0.0-10.0); %Lymphocytes 30.5 % (21.0-51.0); %Monocytes 9.1 % (0.0-10.0); %Neutrophils 59.8 % (42.0-75.0); Hemoglobin 13.2 g/dL (14.0-18.0); Mean Corpuscular HGB CONC 34.6 g/dL (32.0-36.0); Mean Corpuscular Hemoglobin 34.6 pg (27.0-31.0); Mean Corpuscular Volume 99.9 fL (78.0-98.0); Mean Platelet Volume 8.1 fL (7.4-10.4); Platelet Count 166 thou/uL (130-400); RBC Distribution Width 12.3 % (11.5-14.5); Red Blood Cell (RBC) Count 3.83 mill/uL (4.70-6.10)
[2018-04-23 05:11] LABS: Anion Gap 10 mmol/L (10-20); BUN (Urea Nitrogen) 17 mg/dL (8.9-20.6); Calc. Creatinine Clearance 146 mL/min (70-130); Calcium 8.6 mg/dL (7.8-10.44); Carbon Dioxide 28 mmol/L (22-29); Chloride 105 mmol/L (98-107); Estimated GFR-MDRD Greater than 90; Glucose 86 mg/dL (70-105); Potassium 3.9 mmol/L (3.5-5.1); Sodium 139 mmol/L (136-145)
--- NOTE | 2018-04-23 05:59 | PDOC.FM ---
- Subjective Subjective: Mr. Cook says he has continued chest pain of the same quality as yesterday that radiates down his arm. He says it has not improved though the morphine helps. He reports abdominal pain, mostly LLQ as well as feeling sweaty. Denies nausea, vomiting. - Objective MAR Reviewed: Yes Vital Signs & Weight: Vital Signs (12 hours) Pulse Resp BP Pulse Ox 04/23/18 05:15 77 18 150/92 H 04/22/18 22:55 69 18 141/84 H 93 L Result Diagrams: 04/23/18 00:49 04/23/18 00:49 Phys Exam - Physical Examination Constitutional: NAD HEENT: moist MMs, oral pharynx no lesions Respiratory: no rales, no rhonchi, clear to auscultation bilateral Cardiovascular: RRR, no significant murmur Gastrointestinal: soft, no distention, positive bowel sounds LLQ TTP, physical exam not consistent Musculoskeletal: no edema Neurological: non-focal, moves all 4 limbs Psychiatric: normal affect, A&O x 3 Dx/Plan (1) Atypical chest pain Code(s): R07.89 - OTHER CHEST PAIN Status: Acute (2) Abdominal pain Code(s): R10.9 - UNSPECIFIED ABDOMINAL PAIN Status: Acute (3) BPH (benign prostatic hyperplasia) Code(s): N40.0 - BENIGN PROSTATIC HYPERPLASIA WITHOUT LOWER URINRY TRACT SYMP Status: Chronic Qualifiers: Lower urinary tract symptom presence: symptoms present Lower urinary tract symptom detail: urinary hesitancy Qualified Code(s): N40.1 - Benign prostatic hyperplasia with lower urinary tract symptoms; R39.11 - Hesitancy of micturition ; R39.11 - Hesitancy of micturition (4) CAD (coronary artery disease) Code(s): I25.10 - ATHSCL HEART DISEASE OF [place] CORONARY ARTERY W/O ANG PCTRS Status: Chronic Qualifiers: Coronary Disease-Associated Artery/Lesion type: [place] artery [place] vs. transplanted heart: [place] heart Associated angina: with stable angina Qualified Code(s): I25.118 - Atherosclerotic heart disease of [place] coronary artery with other forms of angina pectoris (5) GERD (gastroesophageal reflux disease) Code(s): K21.9 - GASTRO-ESOPHAGEAL REFLUX DISEASE WITHOUT ESOPHAGITIS Status: Chronic Qualifiers: Esophagitis presence: esophagitis presence not specified Qualified Code(s) : K21.9 - Gastro-esophageal reflux disease without esophagitis (6) HLD (hyperlipidemia) Code(s): E78.5 - HYPERLIPIDEMIA, UNSPECIFIED Status: Chronic Qualifiers: Hyperlipidemia type: unspecified Qualified Code(s): E78.5 - Hyperlipidemia , unspecified (7) HTN (hypertension) Code(s): I10 - ESSENTIAL (PRIMARY) HYPERTENSION Status: Chronic Qualifiers: Hypertension type: essential hypertension Qualified Code(s): I10 - Essential (primary) hypertension - Plan Plan: 47 yo M with atypical chest pain vs malingering Atypical chest pain, Stable Angina vs Malingering -Pt with a past medical history of stent placement and ID, presenting for chest pain. Pain does not appear to be an acute ID based on nl CXR and EKG, with Cardiac enzymes all normal. Pt was admitted 04/19 for similar symptoms and at that time his stress test was normal and his cath showed "LAD slowing" but was otherwise normal. High D-dimer with an O2 sat 92% prompted a CTA which was negative for PE or dissection. -Topical nitro and morphine prn for pain control -Continue aspirin -has been NPO. Will consult cardiology today. 2. Abdominal pain, diffuse -Pt ascribes hx of gastric ulcers and vomiting blood 8 months ago -Pt pain is distractible, concern for malingering -KUB, pending -FOBT, pending 3. HTN- stable -Continue coreg, lisinopril 4. GERD -protonix 5. HLD -continue lipitor 6. BPH -Continue terazosin 7. Depression -continue home sertraline Code Status: Full Code
[2018-04-23] MEDS: Clopidogrel Bisulfate 75 MG TAB PO SCH (08:12)
[2018-04-23] MEDS: Lisinopril 5 MG TAB PO SCH (08:13)
[2018-04-23] MEDS: Carvedilol 3.125 MG TAB PO SCH ×2 (08:13→19:50)
[2018-04-23] MEDS: Aspirin 81 mg Enteric Coated Tablet PO SCH (08:14)
[2018-04-23] MEDS ORDERED: Enoxaparin Sodium 30 MG/0.3 ML SYRINGE SC SCH (09:00)
[2018-04-23] MEDS ORDERED: Non-Formulary Item 1 EACH (Omeprazole [Prilosec] 20 MG) PO SCH (09:00)
--- NOTE | 2018-04-23 09:12 | RAD ---
KUB: Date: 04/23/18 PROVIDED CLINICAL HISTORY: Abdominal pain. FINDINGS: No comparisons. The abdominal bowel gas pattern is nonspecific. Contrast material is seen within the urinary bladder. The supine nature of the examination is not sensitive for detection of pneumoperitoneum. No radiogra phically apparent urinary tract calculi. IMPRESSION: Nonspecific bowel gas pattern. POS: [facility]
--- NOTE | 2018-04-23 12:10 | CT ---
PRELIMINARY REPORT/[facility]/EMERGENTY AFTER-HOURS PROCEDURE CT Angiography Chest With Intravenous Contrast CLINICAL HISTORY: 47 years old, male; Pain and abnormal findings; Abnormal diagnostic tests; Elevated d-dimer; Chest pa in; Patient HX: Eval for possible pe; Pt C/O chest pain; Elevated d-dimer TECHNIQUE: Axial computed tomographic angiography images of the chest with intravenous contrast using pulmonary embolism protocol. MIP reconstructed images were created and reviewed. COMPARISON: No relevant prior studies available. FINDINGS: Pulmonary arteries: No pulmonary embolism. The pulmonary arteries are normal in size Aorta: No thoracic aortic aneurysm. No dissection. Lungs: No evidence of consolidation. No pulmonary edema. Pleural space: Unremarkable. No significant effusion. No pneumothorax. Heart: No cardiomegaly or significant pericardial effusion. Bones/joints: No acute fracture. No dislocation. Soft tissues: The soft tissues of the axilla, neck and chest wall are unremarkable. Lymph nodes: No enlarged lymph nodes. Other findings: The visualized superior portions of the abdomen are unremarkable. IMPRESSION: No evidence of pulmonary embolus. No evidence of acute pulmonary pathology. Thank you for allowing us to participate in the care of your patient. Dictated and Authenticated by: Mark Camacho MD 04/23/2018 12:34 AM Central Time ([place] & [place]) FINAL REPORT CHEST CT ANGIOGRAM INCLUDING 3D RENDERING: Date: 04/22/18 Time: 0013 hours IMPRESSION: No CT evidence for acute pulmonary embolism. No pleural effusion or pericardial effusion, or other si gnificant acute process. Unremarkable visualized upper abdomen. Report in agreement with preliminary report given on-call by vRalla. POS: [facility]
[2018-04-23] MEDS: Acetaminophen 325 MG TAB PO PRN (19:32)
[2018-04-23] MEDS: Terazosin HCl 5 MG CAP PO SCH (19:50)
[2018-04-23] MEDS: Atorvastatin Calcium 40 MG TAB PO SCH (19:50)
--- NOTE | 2018-04-23 20:32 | CON ---
DATE OF CONSULTATION: 04/23/2018 DATE OF ADMISSION: 04/22/2018 INDICATION FOR CONSULTATION: This is a 47-year-old gentleman with known coronary artery disease, who has undergone angioplasty and stent placement to the left anterior descending artery as well as the right coronary artery. He also thinks he has stents in the left circumflex, but I cannot see that by evaluation of the cardiac catheterization. He did undergo a recent cardiac catheterization by Dr. Jenelle ivllalta on 04/19/2018. There were no further intervention was performed and he was then discharged janelle k to the facility. At that time, he did have some luminal irregularities in the left anterior descen ding artery as well as the ostium of the left circumflex and the proximal portion of the right vanessa ry artery, but he did have FLOYD grade 3 flow down the vessels. I did notice that may have been some sluggish flow in the proximal left anterior descending artery, but otherwise has been doing well. He presented again with chest pain to the hospital after he was just discharged on 04/21/2018. He retu rned to the hospital the very next day, complaining of chest discomfort again. EKG remained unchange d. No evidence of ischemia and cardiac enzymes also unremarkable. He still continues to have some e pisodes of chest discomfort, which he originally described to me as sharp, stabbing pains. On furthe r questioning and prompting, he then said that sometimes he did have pressure in the chest. He also complained of shortness of breath. He says the pain radiates up to the neck and then down. He has n umbness and discomfort in the left arm. He did undergo the angioplasty and stent placements at [facility] and also these stents were placed as early as 2006. He has also had apparently some significant headaches associated with the discomfort. PAST MEDICAL HISTORY: Significant for coronary artery disease, angioplasty, stent placements, hypert ension, peptic ulcer disease. He has also had surgery on his neck in the past. He has had knee surg jovana and foot surgery. His most recent stent, I believe was placed in 2014. ALLERGIES: He is allergic to PENICILLIN, CEPHALOSPORINS, SULFA, TETANUS VACCINES, IODINE, INFLUENZA VIRUS VACCINE and PNEUMOCOCCAL VACCINES. FAMILY HISTORY: Positive for diabetes. SOCIAL HISTORY: He has been incarcerated since age 14. Previous to that, he smoked about from what he says according to the records 8-pack of cigarettes a day. He has had no smoking in the last 30 ye ars, and no significant alcohol use. MEDICATIONS: The patient had been on Plavix as well as aspirin and also antihypertensive medications . At this time, his medications include aspirin, Lipitor, Coreg, Plavix, Lovenox, isosorbide mononit rate, lisinopril, Protonix, Zoloft, Hytrin and p.r.n. medications. REVIEW OF SYSTEMS: He mainly complained of what was noted in the history of present illness. He has had some GI upsets in the past. He has had some GI bleeding with some hematemesis according to the patient. He has had no significant pulmonary complaints except he complains of occasional shortness of breath with the chest discomfort. Musculoskeletal: He says his legs are get fatigued, but he jones s have arthritis. Neurologic: There was no history of seizures or syncope. PHYSICAL EXAMINATION: GENERAL: Reveals a well-developed gentleman, who is in no acute distress. VITAL SIGNS: His blood pressure is 120/66, heart rates in the 70s, respiratory rate is 18, O2 satura tion is 93%. He is afebrile. HEENT: Showed the head to be normocephalic and atraumatic. Carotid pulses are present. There were no bruits. There is no JVD. The thyroid is not enlarged. CHEST: Clear to auscultation. I did not hear any rales, rhonchi or wheezing. CARDIOVASCULAR: Exam reveals a regular rate and rhythm. There is a normal S1, S2. There is no S3, S4. There were no significant murmurs, heaves, thrills, bruits or rubs. ABDOMEN: Appears to be unremarkable. Soft and nontender. EXTREMITIES: Showed no clubbing, cyanosis or edema. Pedal pulses are present. NEUROLOGIC: The patient appears to be intact. LABORATORY DATA: Shows negative cardiac enzymes. His potassium is 3.9, blood sugar is 86, creatinin e 0.76. His D-dimer was slightly elevated at 0.55. Hemoglobin 13.2, WBC of 8 and platelet count of 166,000. IMPRESSION: 1. Known coronary artery disease. He has undergone angioplasty and stent placements certainly to th e right coronary artery as well as to the left anterior descending artery. He may have stents in the left circumflex, but I cannot visualize this. At this time, this appears to be overall relatively s table. We will leave this up to discretion of Dr. Mcfadden whether or not he wishes to proceed with a repeat cardiac catheterization. We may need to change his medications from Plavix to Effient. [facility], at this time, there is no indication to do that since his EKG remains normal and enzymes were neg ative. 2. History of hypertension. This is under good control at this time. We will continue his same med ications. 3. Dyslipidemia. He will continue on the atorvastatin. 4. History of hematemesis per the patient. We will continue him on Protonix. At this time, from a cardiac standpoint despite having chest discomfort. He appears to be stable and there is no indicati on that we need to intervene acutely at this time. I will have Dr. Mcfadden review his films again greg and probably see the patient prior to discharge.
[2018-04-23] MEDS ORDERED: Terazosin HCl 5 MG CAP PO SCH (21:00)
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
[2018-04-24 05:05] LABS: #Eosinphils 0.1 thou/uL (0.0-0.7); #Lymphocytes 1.6 thou/uL (1.20-3.40); #Monocytes 0.5 thou/uL (0.11-0.59); #Neutrophils 3.3 thou/uL (1.40-6.50); %Basophils 0.2 % (0.0-1.0); %Eosinophils 1.5 % (0.0-10.0); %Lymphocytes 28.4 % (21.0-51.0); %Monocytes 9.1 % (0.0-10.0); %Neutrophils 60.7 % (42.0-75.0); Hemoglobin 14.1 g/dL (14.0-18.0); Mean Corpuscular HGB CONC 34.3 g/dL (32.0-36.0); Mean Corpuscular Hemoglobin 33.9 pg (27.0-31.0); Mean Corpuscular Volume 98.7 fL (78.0-98.0); Mean Platelet Volume 6.9 fL (7.4-10.4); Platelet Count 160 thou/uL (130-400); RBC Distribution Width 11.9 % (11.5-14.5); Red Blood Cell (RBC) Count 4.17 mill/uL (4.70-6.10); White Blood Cell (WBC) Count 5.5 thou/uL (4.8-10.8)
[2018-04-24 05:18] LABS: Anion Gap 9 mmol/L (10-20); BUN (Urea Nitrogen) 16 mg/dL (8.9-20.6); Calc. Creatinine Clearance 146 mL/min (70-130); Calcium 8.8 mg/dL (7.8-10.44); Carbon Dioxide 27 mmol/L (22-29); Chloride 105 mmol/L (98-107); Estimated GFR-MDRD Greater than 90; Glucose 94 mg/dL (70-105); Potassium 4.2 mmol/L (3.5-5.1); Sodium 137 mmol/L (136-145)
--- NOTE | 2018-04-24 05:57 | PDOC.FM ---
- Subjective Subjective: Pt complains of still have CP this morning. Also still has belly tenderness even after straight cath yesterday. Also complains of pain in left armpit from "spider bites." O2 sats overnight 92%, per nursing said he seems to have lowered O2 when laying flat. - Objective MAR Reviewed: Yes Vital Signs & Weight: Vital Signs (12 hours) Temp Pulse Resp BP Pulse Ox 04/24/18 04:45 97.8 F 83 18 112/67 92 L 04/23/18 23:29 97.3 F L 62 12 99/59 L 12 L 04/23/18 19:48 98.3 F 69 20 168/88 H 71 L 04/23/18 19:10 98.3 F 69 12 Weight Weight 85.275 kg Pulse Ox above-- 92 correct, ignore 12 and 71 I&O: 04/22/18 04/23/18 04/24/18 06:59 06:59 06:59 Intake Total 602 Output Total 1150 Balance -548 Result Diagrams: 04/24/18 04:53 04/24/18 04:53 <Elaine Solis - Last Filed: 04/24/18 17:01> - Objective Vital Signs & Weight: Vital Signs (12 hours) Temp Pulse Resp BP Pulse Ox 04/24/18 15:29 98.1 F 75 16 128/79 94 L 04/24/18 11:57 97.7 F 89 18 124/67 95 Weight Weight 85.275 kg I&O: 04/23/18 04/24/18 04/25/18 06:59 06:59 06:59 Intake Total 1102 820 Output Total 1750 1740 Balance -648 -920 Result Diagrams: 04/24/18 04:53 04/24/18 04:53 <Marian Russell - Last Filed: 04/24/18 21:25> Phys Exam - Physical Examination Constitutional: NAD HEENT: PERRLA, moist MMs Respiratory: no wheezing, no rales, no rhonchi, clear to auscultation bilateral Cardiovascular: RRR, no significant murmur, no rub Gastrointestinal: soft <Elaine Solis - Last Filed: 04/24/18 17:01> Dx/Plan (1) Depression Code(s): F32.9 - MAJOR DEPRESSIVE DISORDER, SINGLE EPISODE, UNSPECIFIED Status : Chronic (2) Abdominal pain Code(s): R10.9 - UNSPECIFIED ABDOMINAL PAIN Status: Acute (3) Atypical chest pain Code(s): R07.89 - OTHER CHEST PAIN Status: Acute (4) BPH (benign prostatic hyperplasia) Code(s): N40.0 - BENIGN PROSTATIC HYPERPLASIA WITHOUT LOWER URINRY TRACT SYMP Status: Chronic QualifierTitle: Lower urinary tract symptom presence: symptoms present Lower urinary tract symptom detail: urinary hesitancy Qualified Code(s): N40.1 - Benign prostatic hyperplasia with lower urinary tract symptoms; R39.11 - Hesitancy of micturition; R39.11 - Hesitancy of micturition (5) CAD (coronary artery disease) Code(s): I25.10 - ATHSCL HEART DISEASE OF [place] CORONARY ARTERY W/O ANG PCTRS Status: Chronic QualifierTitle: Coronary Disease-Associated Artery/Lesion type: [place] artery [place] vs. transplanted heart: [place] heart Associated angina: with stable angina Qualified Code(s): I25.118 - Atherosclerotic heart disease of [place] coronary artery with other forms of angina pectoris (6) GERD (gastroesophageal reflux disease) Code(s): K21.9 - GASTRO-ESOPHAGEAL REFLUX DISEASE WITHOUT ESOPHAGITIS Status: Chronic QualifierTitle: Esophagitis presence: esophagitis presence not specified Qualified Code(s): K21.9 - Gastro-esophageal reflux disease without esophagitis (7) HLD (hyperlipidemia) Code(s): E78.5 - HYPERLIPIDEMIA, UNSPECIFIED Status: Chronic QualifierTitle: Hyperlipidemia type: unspecified Qualified Code(s): E78.5 - Hyperlipidemia, unspecified (8) HTN (hypertension) Code(s): I10 - ESSENTIAL (PRIMARY) HYPERTENSION Status: Chronic QualifierTitle: Hypertension type: essential hypertension Qualified Code( s): I10 - Essential (primary) hypertension - Plan Plan: 47 yo M with atypical chest pain vs malingering Atypical chest pain, Stable Angina vs Malingering -Pt with a past medical history of stent placement and [place], presenting for chest pain. Pain does not appear to be an acute [place] based on nl CXR and EKG, with Cardiac enzymes all normal. Pt was admitted 04/19 for similar symptoms and at that time his stress test was normal and his cath showed "LAD slowing" but was otherwise normal. High D-dimer with an O2 sat 92% prompted a CTA which was negative for PE or dissection. -Topical nitro and morphine prn for pain control -Continue aspirin -has been NPO. Followed up with cardiology, Dr. Barrera and Dr. Meza -Per Dr. Meza, from a cardiology standpoint, pt may be discharged. He does recommend further imaging for possible cervical etiology for his pain. -Cervical XR ordered. 2. Abdominal pain, diffuse, likely 2/2 to Urinary Retention 2/2 BPH -Pt ascribes hx of gastric ulcers and vomiting blood 8 months ago -Straight cath yesterday removed 500 cc urine, Post void U/S revealed 273 ml retained -Terazosin increased -PRN cath; will keep doing bladder scans and straight cath if >200 cc -KUB negative -FOBT negative 3. HTN- stable -Continue coreg, lisinopril 4. GERD -protonix 5. HLD -continue lipitor 6. BPH -Terazosin increased, see #2 above 7. Depression -continue home sertraline 8. Suspected JOE -uncomfortable when laying flat, O2 sats decreasing, staying 92% and above -CTA showed no PE or aortic dissection -because of incarceration, pt will not be able to get diagnostics or treatment for this problem Code Status: Full Code <Elaine Solis - Last Filed: 04/24/18 17:01> Attending Addendum - Attending Addendum Date/Time: 04/24/182120 I personally evaluated the patient and discussed the management with Dr. Johny Solis I agree with the History, Examination, Assessment and Plan documented above with any addition or exceptions noted below- Patient c/o left arm pain/numbness as well as neck pain. Afebrile VSS A/P: 1) chest pain - negative troponinss with recent cath showing minimal blockages and patent stents. 2)/Arm pain - suspect etiology from cervical spine. Will obtain C-spine films and recommend further evaluation as outpatient. Consider starting gabapentin or similar medication for radicular type symptoms. Plan to d/c if cleared by cardiology for cardiac etiology of symptoms. <Marian Russell - Last Filed: 04/24/18 21:25>
[2018-04-24] MEDS: Clopidogrel Bisulfate 75 MG TAB PO SCH (08:45)
[2018-04-24] MEDS: Aspirin 81 mg Enteric Coated Tablet PO SCH (08:45)
[2018-04-24] MEDS: Carvedilol 3.125 MG TAB PO SCH ×2 (08:45→20:17)
[2018-04-24] MEDS: Lisinopril 5 MG TAB PO SCH (08:46)
[2018-04-24] MEDS ORDERED: Enoxaparin Sodium 40 MG/0.4 ML SYRINGE SC SCH (09:00)
[2018-04-24] MEDS: Acetaminophen 325 MG TAB PO PRN ×2 (10:50→17:25)
--- NOTE | 2018-04-24 14:09 | PRG ---
DATE OF SERVICE: 04/24/2018 Mr. Cook continues to have pain. The vast majority of the pain is burning sensation to the left arm, it hurts worse when he lifts his arm up. He also has some mild discomfort in the left side of h is chest that is continuous, it hurts with a deep breath. The patient has no anginal type chest pain. PHYSICAL EXAMINATION: VITAL SIGNS: He said his blood pressure was high in the [facility], it is 124/67 now, pulse 89. LUNGS: Clear. CARDIAC: Normal S1, S2. ABDOMEN: Soft, nontender. EXTREMITIES: There is no edema. The patient states he had a 1 liter urinary residual, but I do know that that has been documented. ASSESSMENT: 1. Left arm pain, suspect cervical spine. 2. Coronary artery disease, stable, best treated medically. 3. Cardiac enzymes are all negative. EKG showed no ischemia. He is not having anginal type chest p ain. PLAN: 1. I would recommend consideration for further evaluation of the cervical spine ? of MRI of the spin e. 2. Continue current cardiac medical regimen.
[2018-04-24 15:30] VITALS: BP 128/79; TEMP 98.1
--- NOTE | 2018-04-24 17:12 | RAD ---
3 VIEWS CERVICAL SPINE: Date: 04/24/18 COMPARISON: None. HISTORY: Neck pain and arm numbness. FINDINGS: Three views of the cervical spine show normal height and alignment of the vertebral bodies without fr acture or subluxation. There are moderate osteophytes throughout the cervical spine. No prevertebral soft tissue swelling is seen. IMPRESSION: Moderate degenerative changes of the cervical spine without acute osseous abnormality. POS: [facility]
[2018-04-24] MEDS: Atorvastatin Calcium 40 MG TAB PO SCH (20:17)
[2018-04-24] MEDS: Terazosin HCl 5 MG CAP PO SCH (20:17)
--- NOTE | 2018-04-25 05:44 | DIS-2 ---
DATE OF ADMISSION: 04/22/2018 DATE OF DISCHARGE: 04/24/2018 RESIDENT: Elaine Solis MD ADMITTING ATTENDING: Dr. Jesus Echols. DISCHARGING ATTENDING: Dr. Marian Russell. PROCEDURES: 1. Chest x-ray on 04/22/2018: Impression: No evidence for acute cardiopulmonary process. 2. Chest thorax CTA on 04/22/2018: Impression: No evidence of pulmonary embolus. No evidence of acute pulmonary pathology. 3. Abdomen x-ray on 04/23/2018: Impression: Nonspecific bowel gas pattern. 4. Three views cervical spine on 04/24/2018: Impression: Moderate degenerative changes of the cervical spine without acute osseous abnormality. PRIMARY DIAGNOSIS: Atypical chest pain. SECONDARY DIAGNOSES: 1. Abdominal pain, diffuse, likely secondary to urinary retention secondary to benign prostatic hypertrophy. 2. Hypertension, stable. 3. Gastroesophageal reflux disease. 4. Hyperlipidemia. 5. Benign prostatic hyperplasia. 6. Depression. 7. Suspected obstructive sleep apnea. DISCHARGE MEDICATION: 1. Terazosin 5 mg p.o. at bedtime. 2. Nitroglycerin 0.4 mg SL q.5 minutes p.r.n. 3. Ranitidine 150 mg p.o. at bedtime. 4. Omeprazole 20 mg p.o. b.i.d. 5. Atorvastatin calcium 80 mg p.o. at bedtime. 6. Aspirin 81 mg p.o. daily. 7. Clopidogrel 75 mg q.a.m. 8. Lisinopril 5 mg p.o. daily. 9. Isosorbide mononitrate 60 mg p.o. daily. 10. Carvedilol 3.125 mg p.o. b.i.d. 11. Sertraline 50 mg p.o. daily. DISCONTINUED MEDICATIONS: None. HISTORY OF PRESENT ILLNESS AND HOSPITAL COURSE: This is a 47-year-old male from presented complaining of chest pain who was admitted on 04/19 with similar complaints. He also describes symptoms of headaches, floaters in his vision, and left and right-sided abdominal pain. In his previous admission, the patient had a stress test, which showed left ventricular ejection fraction to be 64% and normal wall motion, and a cardiac catheterization which showed LAD slowing. The patient was admitted to telemetry observation. Patient had negative cardiac enzymes. He also had a CTA which was negative for PE or dissection. His chest x-ray was within normal limits. He did get a postvoid residual, which showed 500 mL was taken out with a straight catheter, and a bladder scan showed 270 mL left in his bladder. He had an FOBT which is negative and a KUB which is negative for any acute process in the abdomen. Because his workup was overall normal, but he was still complaining of chest pain and we did a cervical x-ray of the neck, which showed moderate degenerative changes of the cervical spine without acute osseous abnormality. Some malingering was suspected, and his pain was somewhat distractible. [facility]. CONSULTS: Dr. Barrera on 04/23. DISCHARGE INSTRUCTIONS: 1. Location: [facility]. 2. Diet: Heart healthy. 3. Activity: As tolerated. 4. Followup: Follow up with PCP in 5-7 days. ALISA
== END 2018-04-24 20:26 ==
LOC: ERS 16:22 → 2SW 20:26
PROVIDERS: ADMIT Family Medicine; ATTEND Family Medicine
DX: R07.89 Other chest pain (principal); R10.9 Unspecified abdominal pain; I10 Essential (primary) hypertension; K21.9 Gastro-esophageal reflux disease without esophagitis; E78.5 Hyperlipidemia, unspecified; F32.9 Major depressive disorder, single episode, unspecified; N40.0 Benign prostatic hyperplasia without lower urinary tract symptoms; I25.118 Atherosclerotic heart disease of native coronary artery with other forms of angina pectoris; Z79.82 Long term (current) use of aspirin; Z79.02 Long term (current) use of antithrombotics/antiplatelets; Z79.899 Other long term (current) drug therapy; Z95.5 Presence of coronary angioplasty implant and graft; Z88.0 Allergy status to penicillin; Z88.2 Allergy status to sulfonamides; Z91.041 Radiographic dye allergy status; Z88.8 Allergy status to other drugs, medicaments and biological substances; Z87.891 Personal history of nicotine dependence
CPT/HCPCS: 36415; 51701; 51798; 71046; 71275; 72040; 74018; 80048; 80053; 80306; 82274; 82553; 83880; 84484; 85025; 85379; 93005; 96372; 96374; 96375; 96376; A4216; G0378; J1650; J2270; J2405

== ENCOUNTER 2018-04-27 17:45 | Emergency (ER) | payer OTHER ==
[2018-04-27] MEDS ORDERED: Pantoprazole 40 MG VIAL ONE (18:05)
[2018-04-27 18:37] LABS: Hemoglobin 14.1 g/dL (14.0-18.0); Mean Corpuscular HGB CONC 36.5 g/dL (32.0-36.0); Mean Corpuscular Hemoglobin 35.9 pg (27.0-31.0); Mean Corpuscular Volume 98.4 fL (78.0-98.0); Mean Platelet Volume 8.1 fL (7.4-10.4); Platelet Count 135 thou/uL (130-400); RBC Distribution Width 11.8 % (11.5-14.5); Red Blood Cell (RBC) Count 3.92 mill/uL (4.70-6.10); White Blood Cell (WBC) Count 6.3 thou/uL (4.8-10.8)
[2018-04-27 18:50] LABS: ALT (SGPT) 31 U/L (8-55); AST (SGOT) 20 U/L (5-34); Albumin 4.3 g/dL (3.5-5.0); Alkaline Phosphatase 146 U/L (40-150); Anion Gap 13 mmol/L (10-20); BUN (Urea Nitrogen) 15 mg/dL (8.9-20.6); Bilirubin, Total 0.7 mg/dL (0.2-1.2); CK (CPK) 80 U/L (30-200); Calc. Creatinine Clearance 0 mL/min (70-130); Calcium 9.3 mg/dL (7.8-10.44); Carbon Dioxide 20 mmol/L (22-29); Chloride 109 mmol/L (98-107); Estimated GFR-MDRD Greater than 90; Globulin 2.6 g/dL (2.4-3.5); Glucose 98 mg/dL (70-105); Lipase 55 U/L (8-78); Potassium 4.2 mmol/L (3.5-5.1); Protein, Total 6.9 g/dL (6.0-8.3); Sodium 138 mmol/L (136-145)
[2018-04-27 18:57] LABS: CKMB 1.3 ng/mL (0-6.6); Troponin I Less than 0.010 ng/mL (< 0.028)
[2018-04-27 18:59] LABS: Band 5 % (5-11); Eosinophils 5 % (0-10); Lymphocytes 27 % (21-51); MDiff Complete? YES; Monocytes 4 % (0-10); Neutrophil 57 % (42-75); Reactive Lymphocytes 2 % (0-10)
--- NOTE | 2018-04-27 19:22 | RAD ---
PORTABLE AP CHEST X-RAY 04/27/18 HISTORY: Chest pain. COMPARISON: 04/22/18. FINDINGS: The cardiac silhouette and pulmonary vasculature are within normal limits. The lungs remain clear. Th ere has been no interval change from the prior exam. IMPRESSION: No acute cardiopulmonary process. POS: AUDRA
== END 2018-04-27 19:42 ==
LOC: ERS 17:45
DX: R07.9 Chest pain, unspecified (principal); R10.13 Epigastric pain; J45.909 Unspecified asthma, uncomplicated; E78.5 Hyperlipidemia, unspecified; I25.2 Old myocardial infarction; I10 Essential (primary) hypertension; K21.9 Gastro-esophageal reflux disease without esophagitis; F31.9 Bipolar disorder, unspecified; Z87.891 Personal history of nicotine dependence; Z79.82 Long term (current) use of aspirin; Z79.891 Long term (current) use of opiate analgesic; Z79.899 Other long term (current) drug therapy
CPT/HCPCS: 36415; 71045; 80053; 82274; 82550; 82553; 83690; 83880; 84484; 85025; 93005; 94760; 96374; C9113

== ENCOUNTER 2018-05-25 21:19 | Emergency (ER) | payer OTHER ==
[2018-05-25 22:01] LABS: #Eosinphils 0.1 thou/uL (0.0-0.7); #Lymphocytes 1.5 thou/uL (1.20-3.40); #Monocytes 0.6 thou/uL (0.11-0.59); #Neutrophils 3.1 thou/uL (1.40-6.50); %Basophils 0.2 % (0.0-1.0); %Eosinophils 2.7 % (0.0-10.0); %Lymphocytes 27.9 % (21.0-51.0); %Monocytes 10.8 % (0.0-10.0); %Neutrophils 58.4 % (42.0-75.0); Mean Corpuscular HGB CONC 35.3 g/dL (32.0-36.0); Mean Corpuscular Hemoglobin 34.6 pg (27.0-31.0); Mean Corpuscular Volume 97.9 fL (78.0-98.0); Mean Platelet Volume 6.9 fL (7.4-10.4); Platelet Count 188 thou/uL (130-400); RBC Distribution Width 11.6 % (11.5-14.5); Red Blood Cell (RBC) Count 3.77 mill/uL (4.70-6.10); White Blood Cell (WBC) Count 5.2 thou/uL (4.8-10.8)
--- NOTE | 2018-05-25 22:03 | RAD ---
RADIOGRAPH CHEST 1 VIEW: 05/25/18 HISTORY: 47-year-old male with chest pain and hypertension. FINDINGS: There are no air space densities, pulmonary edema, pneumothorax, or cardiomegaly. The lateral costop hrenic angles are sharp. IMPRESSION: No acute cardiopulmonary findings. jn [] POS: JIN
[2018-05-25 22:25] LABS: CKMB 1.4 ng/mL (0-6.6); Troponin I Less than 0.010 ng/mL (< 0.028)
== END 2018-05-26 00:15 | disposition home or self-care (01) ==
LOC: ERS 21:19
DX: R07.9 Chest pain, unspecified (principal); L73.9 Follicular disorder, unspecified; E78.5 Hyperlipidemia, unspecified; J45.909 Unspecified asthma, uncomplicated; I25.2 Old myocardial infarction; I10 Essential (primary) hypertension; K21.9 Gastro-esophageal reflux disease without esophagitis; F31.9 Bipolar disorder, unspecified; Z87.891 Personal history of nicotine dependence; Z79.82 Long term (current) use of aspirin; Z79.899 Other long term (current) drug therapy
CPT/HCPCS: 36415; 71045; 82550; 82553; 84484; 85025; 93005

== ENCOUNTER 2018-08-03 05:05 | Emergency (ER) | payer OTHER ==
[2018-08-03 05:40] LABS: #Eosinphils 0.1 thou/uL (0.0-0.7); #Lymphocytes 1.7 thou/uL (1.20-3.40); #Monocytes 0.5 thou/uL (0.11-0.59); #Neutrophils 4.4 thou/uL (1.40-6.50); %Basophils 0.3 % (0.0-1.0); %Eosinophils 1.4 % (0.0-10.0); %Lymphocytes 24.9 % (21.0-51.0); %Monocytes 7.8 % (0.0-10.0); %Neutrophils 65.7 % (42.0-75.0); Hemoglobin 13.9 g/dL (14.0-18.0); Mean Corpuscular HGB CONC 32.9 g/dL (32.0-36.0); Mean Corpuscular Hemoglobin 32.1 pg (27.0-31.0); Mean Corpuscular Volume 97.7 fL (78.0-98.0); Mean Platelet Volume 7.1 fL (7.4-10.4); Platelet Count 250 thou/uL (130-400); RBC Distribution Width 11.9 % (11.5-14.5); Red Blood Cell (RBC) Count 4.32 mill/uL (4.70-6.10); White Blood Cell (WBC) Count 6.7 thou/uL (4.8-10.8)
[2018-08-03 06:02] LABS: ALT (SGPT) 11 U/L (8-55); AST (SGOT) 14 U/L (5-34); Albumin 4.2 g/dL (3.5-5.0); Alkaline Phosphatase 84 U/L (40-150); Anion Gap 9 mmol/L (10-20); BUN (Urea Nitrogen) 13 mg/dL (8.9-20.6); Bilirubin, Total 0.8 mg/dL (0.2-1.2); CK (CPK) 156 U/L (30-200); Calc. Creatinine Clearance 0 mL/min (70-130); Calcium 9.1 mg/dL (7.8-10.44); Carbon Dioxide 26 mmol/L (22-29); Chloride 106 mmol/L (98-107); Estimated GFR-MDRD Greater than 90; Globulin 2.6 g/dL (2.4-3.5); Glucose 111 mg/dL (70-105); Potassium 4.1 mmol/L (3.5-5.1); Protein, Total 6.8 g/dL (6.0-8.3); Sodium 137 mmol/L (136-145)
[2018-08-03 06:06] LABS: CKMB 1.9 ng/mL (0-6.6); Troponin I Less than 0.010 ng/mL (< 0.028)
[2018-08-03] MEDS ORDERED: Nitroglycerin 0.4 MG TAB (25 Tab Bottle) ONE (06:55)
--- NOTE | 2018-08-03 10:28 | RAD ---
PORTABLE CHEST: Date: 08/03/18 PROVIDED CLINICAL HISTORY: Chest pain. COMPARISON: 05/25/18. FINDINGS: Cardiac and mediastinal silhouette within normal limits. Lungs appear clear. No pleural fluid or pneu mothorax apparent. IMPRESSION: No evidence for an acute cardiopulmonary process. POS: [facility]
--- NOTE | 2018-08-05 11:36 | EKG ---
Test Reason : CP Blood Pressure : / mmHG Vent. Rate : 075 BPM Atrial Rate : 075 BPM P-R Int : 148 ms QRS Dur : 086 ms QT Int : 420 ms P-R-T Axes : 041 037 014 degrees QTc Int : 469 ms Normal sinus rhythm Normal ECG Confirmed by SHAYE HERNANDEZ DO ([id number]), photograph editor JUDIT CARRILLO ([id number]) on 08/05/2018 11:35:56 AM Referred By: Confirmed By:SHAYE HERNANDEZ DO
== END 2018-08-03 13:40 | disposition short-term general hospital (02) ==
LOC: ERS 05:05
DX: R07.9 Chest pain, unspecified (principal); J45.909 Unspecified asthma, uncomplicated; E78.5 Hyperlipidemia, unspecified; I25.2 Old myocardial infarction; I10 Essential (primary) hypertension; K21.9 Gastro-esophageal reflux disease without esophagitis; F31.9 Bipolar disorder, unspecified; Z87.891 Personal history of nicotine dependence; Z79.82 Long term (current) use of aspirin; Z79.899 Other long term (current) drug therapy
CPT/HCPCS: 71045; 80053; 82553; 83880; 84484; 85025; 93005

== ENCOUNTER 2019-05-25 17:37 | Emergency (ER) | payer OTHER ==
[2019-05-25] MEDS ORDERED: Acetaminophen 500 MG TAB ONE (17:54)
[2019-05-25 18:22] LABS: #Eosinphils 0.1 thou/uL (0.0-0.7); #Lymphocytes 2.1 thou/uL (1.20-3.40); #Monocytes 0.6 thou/uL (0.11-0.59); #Neutrophils 2.5 thou/uL (1.40-6.50); %Eosinophils 2.4 % (0.0-10.0); %Lymphocytes 39.1 % (21.0-51.0); %Monocytes 10.7 % (0.0-10.0); %Neutrophils 47.8 % (42.0-75.0); Hemoglobin 14.6 g/dL (14.0-18.0); Mean Corpuscular HGB CONC 34.7 g/dL (32.0-36.0); Mean Corpuscular Hemoglobin 33.1 pg (27.0-31.0); Mean Corpuscular Volume 95.4 fL (78.0-98.0); Mean Platelet Volume 7.8 fL (7.4-10.4); Platelet Count 201 thou/uL (130-400); RBC Distribution Width 12.5 % (11.5-14.5); Red Blood Cell (RBC) Count 4.41 mill/uL (4.70-6.10); White Blood Cell (WBC) Count 5.3 thou/uL (4.8-10.8)
--- NOTE | 2019-05-25 18:27 | RAD ---
RADIOGRAPH CHEST 1 VIEW: DATE: 05/25/2019 HISTORY: 48-year-old male with cough and dyspnea FINDINGS: There are no airspace densities, pulmonary edema, pneumothorax, or cardiomegaly. The lateral costophr enic angles are sharp. IMPRESSION: No acute cardiopulmonary findings.
[2019-05-25] MEDS ORDERED: Ketorolac Tromethamine 30 MG/ML VIAL ONE (18:37)
[2019-05-25 18:43] LABS: ALT (SGPT) 17 U/L (8-55); AST (SGOT) 21 U/L (5-34); Albumin 4.8 g/dL (3.5-5.0); Alkaline Phosphatase 111 U/L (40-150); Anion Gap 14 mmol/L (10-20); BUN (Urea Nitrogen) 9 mg/dL (8.9-20.6); Bilirubin, Total 0.7 mg/dL (0.2-1.2); CK (CPK) 213 U/L (30-200); Calc. Creatinine Clearance 0 mL/min (70-130); Calcium 9.2 mg/dL (7.8-10.44); Carbon Dioxide 21 mmol/L (22-29); Chloride 107 mmol/L (98-107); Estimated GFR-MDRD Greater than 90; Globulin 2.3 g/dL (2.4-3.5); Glucose 108 mg/dL (70-105); Potassium 4.2 mmol/L (3.5-5.1); Protein, Total 7.1 g/dL (6.0-8.3); Sodium 138 mmol/L (136-145)
--- NOTE | 2019-05-25 19:29 | CT ---
CT CHEST WITHOUT CONTRAST: 05/25/19 HISTORY: Cough, fever, tachycardia, shortness of breath. FINDINGS: Absence of IV contrast reduces the sensitivity for the exam particularly for evaluation of mediastina l, hilar and vascular structures. There are vascular calcifications without evidence of aneurysmal dilatation of the thoracic aorta. No pleural or pericardial effusions are seen. The tracheobronchial tree is patent. No pneumothoraces, f ocal areas of consolidation, lung nodules or masses are seen. There are degenerative changes in the s pine. IMPRESSION: No significant abnormalities are seen within the constraints of the exam. POS: [facility]
[2019-05-25] MEDS ORDERED: Azithromycin 500 MG VIAL ONE (20:41)
--- NOTE | 2019-06-02 12:17 | EKG ---
Test Reason : Blood Pressure : / mmHG Vent. Rate : 092 BPM Atrial Rate : 092 BPM P-R Int : 144 ms QRS Dur : 082 ms QT Int : 356 ms P-R-T Axes : 051 002 022 degrees QTc Int : 440 ms Normal sinus rhythm Normal ECG Confirmed by CELESTINO BONDS, MARISSA Soto ([id number]), editor index JUDIT CRARILLO ([id number]) on 06/02/2019 12:16:53 PM Referred By: Confirmed By:MARISSA TIRADO MD
== END 2019-05-25 21:12 | disposition short-term general hospital (02) ==
LOC: ERS 17:37
DX: J44.1 Chronic obstructive pulmonary disease with (acute) exacerbation (principal); J18.9 Pneumonia, unspecified organism; E78.5 Hyperlipidemia, unspecified; I10 Essential (primary) hypertension; K21.9 Gastro-esophageal reflux disease without esophagitis; F31.9 Bipolar disorder, unspecified; Z87.891 Personal history of nicotine dependence; Z79.82 Long term (current) use of aspirin; Z79.899 Other long term (current) drug therapy
CPT/HCPCS: 36415; 71045; 71250; 80053; 82550; 83605; 83880; 84484; 85025; 87040; 87149; 93005; 96365; J0456; J1885; J1956

== ENCOUNTER 2019-06-22 15:08 | Inpatient (IN) | payer OTHER ==
[2019-06-22 15:45] LABS: #Eosinphils 0.1 thou/uL (0.0-0.7); #Lymphocytes 1.5 thou/uL (1.20-3.40); #Monocytes 0.5 thou/uL (0.11-0.59); %Basophils 0.5 % (0.0-1.0); %Eosinophils 1.7 % (0.0-10.0); %Lymphocytes 29.8 % (21.0-51.0); %Monocytes 10.4 % (0.0-10.0); %Neutrophils 57.7 % (42.0-75.0); Hemoglobin 13.1 g/dL (14.0-18.0); Mean Corpuscular HGB CONC 34.8 g/dL (32.0-36.0); Mean Corpuscular Hemoglobin 33.3 pg (27.0-31.0); Mean Corpuscular Volume 95.6 fL (78.0-98.0); Mean Platelet Volume 7.8 fL (7.4-10.4); Platelet Count 160 thou/uL (130-400); RBC Distribution Width 12.4 % (11.5-14.5); Red Blood Cell (RBC) Count 3.95 mill/uL (4.70-6.10); White Blood Cell (WBC) Count 5.2 thou/uL (4.8-10.8)
--- NOTE | 2019-06-22 15:48 | RAD ---
XR Chest 1 View Portable History: Chest pain Comparison: Radiograph May 25, 2019 Findings: Lungs are clear. No pneumothorax or effusion. Cardiac silhouette and mediastinal contours a re within normal limits. Moderate degenerative changes of the acromioclavicular joints. Impression: No acute intrathoracic abnormality.
[2019-06-22 16:11] LABS: ALT (SGPT) 19 U/L (8-55); AST (SGOT) 16 U/L (5-34); Albumin 4.2 g/dL (3.5-5.0); Alkaline Phosphatase 97 U/L (40-150); Anion Gap 10 mmol/L (10-20); BUN (Urea Nitrogen) 12 mg/dL (8.9-20.6); Bilirubin, Total 0.8 mg/dL (0.2-1.2); CK (CPK) 95 U/L (30-200); Calc. Creatinine Clearance 0 mL/min (70-130); Calcium 8.6 mg/dL (7.8-10.44); Carbon Dioxide 26 mmol/L (22-29); Chloride 107 mmol/L (98-107); Estimated GFR-MDRD Greater than 90; Globulin 1.8 g/dL (2.4-3.5); Glucose 115 mg/dL (70-105); Lipase 25 U/L (8-78); Potassium 4.1 mmol/L (3.5-5.1); Sodium 139 mmol/L (136-145)
[2019-06-22] MEDS ORDERED: Famotidine/PF 20 mg/2ml Vial ONE (18:16)
[2019-06-22] MEDS ORDERED: diphenhydrAMINE 50 MG/ML VIAL ONE (18:16)
[2019-06-22] MEDS ORDERED: methylPREDNISolone Sod Succ/PF 125 MG/2 ML VIAL ONE (18:16)
[2019-06-22] MEDS ORDERED: Metoclopramide HCl 10 MG/2 ML VIAL ONE (18:45)
--- NOTE | 2019-06-22 19:27 | CT ---
CT ANGIO OF CHEST AND ABDOMEN PERFORMED WITH INTRAVENOUS CONTRAST ENHANCEMENT AND 3D RECONSTRUCTIONS: 06/22/19 HISTORY: Left sided chest pain. Pain radiating to neck, arm and back. Patient has a history of allergy to cont rast. Was premedicated using the fast prep. COMPARISON: A CT angio of the chest performed 04/23/18. The lungs are clear of any infiltrative process. No pulmonary nodules or pleural effusions. There is fairly good pulmonary artery opacification for evaluation of more central emboli and I see n o signs of any embolus. The thoracic aorta is normal in caliber and shows no signs of dissection. A small hiatal hernia is pr esent. CT ANGIO OF ABDOMEN PERFORMED WITH CONTRAST ENHANCEMENT AND 3D RECONSTRUCTIONS: The liver and spleen show no focal findings. The pancreas and gallbladder regions are unremarkable. Right and left adrenal glands and right and left kidneys are normal in size. A fat containing paraumb ilical hernia is seen. The abdominal aorta is normal in caliber without signs of dissection. No evide nce of any narrowing to the celiac or superior mesenteric arteries. Review of osseous structures show arthritic changes of the spine. IMPRESSION: No evidence of aortic aneurysm or dissection. POS: [facility]
[2019-06-22] MEDS ORDERED: Morphine 4 MG/ML VIAL ONE (21:55)
[2019-06-22 22:51] LABS: Troponin I Less than 0.010 ng/mL (< 0.028)
[2019-06-22] MEDS ORDERED: Ondansetron PF 4 MG/2 ML Vial IVP PRN (23:29)
[2019-06-22] MEDS ORDERED: Ondansetron ODT 4 MG TAB SL PRN (23:29)
[2019-06-22] MEDS ORDERED: Acetaminophen 325 MG TAB PO PRN (23:29)
[2019-06-22 23:36] VITALS: BMI 33.7
[2019-06-23] MEDS ORDERED: Carvedilol 3.125 MG TAB PO SCH (01:30)
[2019-06-23] MEDS ORDERED: Atorvastatin Calcium 40 MG TAB PO SCH (01:30)
[2019-06-23 02:08] LABS: Troponin I Less than 0.010 ng/mL (< 0.028)
--- NOTE | 2019-06-23 02:59 | HP ---
CHIEF COMPLAINT: Chest pain. HISTORY OF PRESENT ILLNESS: Mr. Cook is a 48-year-old gentleman, currently incarcerated, who presented to [facility] Emergency Department with complaints of chest pain. He describes the chest pain as sharp and stabbing with radiation to his neck and head, left arm, back, and his left leg. He has no associated symptoms. The patient states that symptoms came on shortly after having lunch. He asked for nitroglycerin, which did not help his pain and so, he presented to the emergency department for further workup. On arrival, his EKG was normal, showing normal sinus rhythm and no ischemic changes. His troponin has been negative x2. He underwent CT with contrast of the chest and abdomen using dissection protocol, which showed no evidence of pulmonary embolism and no evidence of aortic aneurysm or dissection. The patient does have a history of coronary artery disease and stenting in the past. He had an MD in 2006. His last left heart catheterization performed at this facility, was performed in April [address] Mcfadden. This showed no stenosis in the left main, patent LAD stent, patent RCA stent, mild proximal circumflex, and RCA disease. The patient was recently admitted at [facility] just 3 days ago, where he underwent left heart catheterization. We have no access to those records at this time, and the patient does not know the results of that left heart catheterization. Per review of records at this facility, the patient does have history of some atypical type pain with negative workups in the past. REVIEW OF SYSTEMS: The patient states that he was diagnosed with pneumonia 2 months ago. Otherwise, 12-point review of systems is negative. He has had no shortness of breath. No fever, chills, or nausea. No blood in urine or stool. ALLERGIES: CEPHALOSPORINS, INFLUENZA VACCINE, IODINE, PENICILLINS, PNEUMOCOCCAL VACCINE, SULFA DRUGS, TETANUS VACCINE AND TOXOID. HOME MEDICATIONS: 1. Tylenol 325 to 650 mg p.o. p.r.n. 2. Albuterol inhaler 2 puffs inhaled q.4 hours p.r.n. 3. Aspirin 81 mg daily. 4. Atorvastatin 80 mg p.o. at bedtime. 5. Carvedilol 6.25 mg p.o. b.i.d. 6. Plavix 75 mg daily. 7. Isosorbide mononitrate 60 mg daily. 8. Lisinopril 2.5 mg daily. 9. Sublingual nitroglycerin 0.4 mg p.r.n. 10. Omeprazole 20 mg p.o. daily. 11. Sertraline 50 mg p.o. at bedtime. 12. Terazosin 10 mg p.o. daily. PAST MEDICAL HISTORY: 1. Coronary artery disease, status post stent to the RCA and LAD in the past. These were widely patent per left heart catheterization in 2018 at this facility. 2. Hypertension. 3. Hyperlipidemia. 4. Gastroesophageal reflux disease. 5. Previous MD. 6. Asthma. 7. Left leg DVT in 2006. 8. History of GI bleed. PAST SURGICAL HISTORY: Stent placement as described above, left knee surgery repair, neck surgery. PSYCHIATRIC HISTORY: Includes bipolar disorder. SOCIAL HISTORY: No alcohol or drug use at this time as the patient is incarcerated. He is a former smoker, but does not smoke now. Per record review, he has been incarcerated since the age of 14. PHYSICAL EXAMINATION: VITAL SIGNS: Blood pressure 138/77, respirations 18, O2 saturation 96%, pulse is 77, and temperature 98.1. GENERAL: The patient is a mildly obese male, resting in bed, no acute distress. HEENT: Head is atraumatic and normocephalic. Mucous membranes are moist. NECK: Trachea is midline. No obvious JVD. CV: S1 and S2. Regular rate and rhythm. No appreciable murmurs, rubs, or gallops. LUNGS: Regular respiratory rate and pattern, overall clear. ABDOMEN: Positive bowel sounds. EXTREMITIES: No edema. Inspection of right femoral access site from his recent left heart catheterization reveals no evidence of hematoma, no bruise noted. Soft. NEUROLOGIC: Cranial nerves 2 through 12 are grossly intact. The patient is nonfocal. LABORATORY DATA: White blood cell count 5.2, hemoglobin 13.1, hematocrit 37.7, platelet count is 160. Sodium 139, potassium 4.1, carbon dioxide 26, anion gap 10, creatinine 0.84. AST, ALT, alkaline phosphatase all within normal limits. Troponin negative x2. ASSESSMENT: 1. Chest pain/back pain/left leg pain/head and neck pain, unclear etiology, atypical, acute coronary syndrome ruled out, and EKG normal. 2. History of coronary artery disease, status post stents, patent per left heart catheterization in 2018 at this facility; the patient apparently had left heart catheterization 3 days ago at [facility], records currently unavailable. 3. History of myocardial infarction in 2007. 4. History of deep venous thrombosis. 5. History of hematemesis/gastrointestinal bleeding. 6. Hypertension. 7. Hyperlipidemia. PLAN: ACS has been ruled out in this patient. We will request records from [facility] regarding the patient's left heart catheterization performed 2 days ago. We will continue his cardiac medications including dual anti-platelet therapy, statin, beta-barak, and MARITZA inhibitor. The nature of his pain is unclear at this time, but certainly atypical for cardiac etiology. The patient had a heart catheterization here in 2018 that showed patent stents and very mild proximal disease in the RCA and circumflex. If records obtained by [facility] also show stable disease and patent stents, I expect he can be discharged tomorrow. Further recommendations based on hospital course. Job ID: [id number]
[2019-06-23 05:03] LABS: Anion Gap 14 mmol/L (10-20); BUN (Urea Nitrogen) 12 mg/dL (8.9-20.6); Calc. Creatinine Clearance 118 mL/min (70-130); Calcium 9.4 mg/dL (7.8-10.44); Carbon Dioxide 23 mmol/L (22-29); Chloride 106 mmol/L (98-107); Estimated GFR-MDRD 78; Glucose 255 mg/dL (70-105); Potassium 4.5 mmol/L (3.5-5.1); Sodium 138 mmol/L (136-145)
[2019-06-23] MEDS: Nitroglycerin 0.4 MG TAB (25 Tab Bottle) SL PRN ×4 (05:36→10:56)
[2019-06-23] MEDS: Carvedilol 3.125 MG TAB PO SCH ×2 (08:21→19:59)
[2019-06-23] MEDS: Clopidogrel Bisulfate 75 MG TAB PO SCH (08:21)
[2019-06-23] MEDS: Aspirin 81 mg Enteric Coated Tablet PO SCH (08:21)
[2019-06-23] MEDS: Terazosin HCl 5 MG CAP PO SCH (08:21)
[2019-06-23] MEDS: Lisinopril 5 MG TAB PO SCH (08:21)
[2019-06-23] MEDS: Acetaminophen 325 MG TAB PO PRN ×2 (11:46→22:29)
--- NOTE | 2019-06-23 12:06 | PDOC.HOSPP ---
- Subjective Encounter Date: 06/23/19 Encounter Time: 12:03 Subjective: 48 y/o male with CAD s/p stents with recent cardiac cath on 06/20/2019 at [facility] showing patent stents to LAD and RCA now readmitted with anterior and upper mid back pain associated with left upper limb numbness. Still with cal pain rated at 6/10. - Objective Vital Signs & Weight: Vital Signs (12 hours) Temp Pulse Resp BP BP Pulse Ox 06/23/19 08:21 75 145/79 H 06/23/19 07:39 97.4 F L 65 16 150/77 H 96 06/23/19 07:00 75 145/79 H 06/23/19 06:28 78 18 174/88 H 97 06/23/19 05:45 77 18 138/75 97 06/23/19 05:36 85 18 191/95 H 97 06/23/19 03:39 97.9 F 85 18 128/91 H 96 06/23/19 02:40 97.9 F 60 18 116/58 L 98 06/23/19 01:39 97.9 F Weight Admit Weight 209 lb 8 oz Weight 209 lb 8 oz I&O: 06/22/19 06/23/19 06/24/19 06:59 06:59 06:59 Intake Total 1200 Output Total 1400 Balance -200 Result Diagrams: 06/22/19 15:28 06/23/19 03:52 Hospitalist ROS - Medication Medications: Active Medications Generic Name Dose Route Start Last Admin Trade Name Freq PRN Reason Stop Dose Admin Acetaminophen 650 mg 06/23/19 11:18 06/23/19 11:46 Tylenol PO 650 mg Q6H PRN Administration Headache/Fever or Pain Aspirin 81 mg 06/23/19 09:00 06/23/19 08:21 Ecotrin PO 81 mg DAILY NIKKIE Administration Carvedilol 6.25 mg 06/23/19 09:00 06/23/19 08:21 Coreg PO 6.25 mg BID NIKKIE Administration Clopidogrel Bisulfate 75 mg 06/23/19 09:00 06/23/19 08:21 Plavix PO 75 mg QAM NIKKIE Administration Isosorbide Mononitrate 60 mg 06/23/19 09:00 06/23/19 08:21 Imdur PO 60 mg DAILY NIKKIE Administration Lisinopril 2.5 mg 06/23/19 09:00 06/23/19 08:21 Zestril PO 2.5 mg DAILY NIKKIE Administration Nitroglycerin 0.4 mg 06/23/19 01:22 06/23/19 10:56 Nitrostat SL 1 tab Q5MIN PRN Administration Chest Pain Pantoprazole Sodium 40 mg 06/23/19 09:00 06/23/19 08:21 Protonix PO 40 mg DAILY NIKKIE Administration Terazosin HCl 10 mg 06/23/19 09:00 06/23/19 08:21 Hytrin PO 10 mg DAILY NIKKIE Administration - Exam General Appearance: awake alert Eye: anicteric sclera ENT: normocephalic atraumatic, moist mucosa Neck: supple, symmetric, no JVD Heart: RRR Respiratory: CTAB, no wheezes, no ronchi, normal chest expansion Gastrointestinal: soft, non-tender, non-distended, normal bowel sounds Extremities: no cyanosis, no edema Neurological: cranial nerve grossly intact, no focal deficits Musculoskeletal: normal tone, no muscle wasting Psychiatric: normal affect, A&O x 3 Hosp A/P (1) Unstable angina pectoris due to coronary arteriosclerosis Code(s): I25.110 - ATHSCL HEART DISEASE OF [place] COR ART W UNSTABLE ANG PCTRS Status: Acute (2) BPH (benign prostatic hyperplasia) Code(s): N40.0 - BENIGN PROSTATIC HYPERPLASIA WITHOUT LOWER URINRY TRACT SYMP Status: Chronic Qualifiers: Lower urinary tract symptom presence: symptoms present Lower urinary tract symptom detail: urinary hesitancy Qualified Code(s): N40.1 - Benign prostatic hyperplasia with lower urinary tract symptoms; R39.11 - Hesitancy of micturition ; R39.11 - Hesitancy of micturition (3) CAD (coronary artery disease) Code(s): I25.10 - ATHSCL HEART DISEASE OF [place] CORONARY ARTERY W/O ANG PCTRS Status: Chronic Qualifiers: Coronary Disease-Associated Artery/Lesion type: [place] artery [place] vs. transplanted heart: [place] heart Associated angina: with stable angina Qualified Code(s): I25.118 - Atherosclerotic heart disease of [place] coronary artery with other forms of angina pectoris (4) GERD (gastroesophageal reflux disease) Code(s): K21.9 - GASTRO-ESOPHAGEAL REFLUX DISEASE WITHOUT ESOPHAGITIS Status: Chronic Qualifiers: Esophagitis presence: esophagitis presence not specified Qualified Code(s) : K21.9 - Gastro-esophageal reflux disease without esophagitis (5) HLD (hyperlipidemia) Code(s): E78.5 - HYPERLIPIDEMIA, UNSPECIFIED Status: Chronic Qualifiers: Hyperlipidemia type: unspecified Qualified Code(s): E78.5 - Hyperlipidemia , unspecified (6) HTN (hypertension) Code(s): I10 - ESSENTIAL (PRIMARY) HYPERTENSION Status: Chronic Qualifiers: Hypertension type: essential hypertension Qualified Code(s): I10 - Essential (primary) hypertension - Plan Start lovenox anticoagulation Consult cardiology. Continue ASA, coreg, statin, imdur and lisinopril SL nitro as needed. Morphine as needed. nitro infusion contemplated. Awaiting cardiology evaluation.
[2019-06-23] MEDS ORDERED: Enoxaparin Sodium 100 MG/ML SYRINGE SC SCH (12:15)
[2019-06-23] MEDS ORDERED: Morphine 2 MG/ML SYRINGE SLOW IVP SCH (12:15)
--- NOTE | 2019-06-23 15:27 | CON ---
DATE OF CONSULTATION: REASON FOR CONSULTATION: Chest pain. PRIMARY INTERVIEWING CLERK: Dr. Blayne Mcfadden. HISTORY OF PRESENT ILLNESS: Mr. Cook is a 48-year-old gentleman with a history of CAD, status post stent placement to the circumflex artery and LAD, who recently presented with chest pain. Mr. Cook did present with chest pain to the [facility] 3 days ago. He underwent coronary angiography and was found to have patent stents. The report is not currently available. After reviewing the chart, Mr. Cook also underwent a coronary angiography last year with patent stents. There was some ostial disease present in the right coronary artery. A followup stress test did not suggest significant ischemia present. Overall, LVEF was normal. Mr. Santos states he has had intermittent chest pain for several years. The pain has been fairly the same. No significant changes. The pain is intermittent. The pain starts in his shoulder and goes to his neck into his arm. He also describes a left leg pain. His EKGs remain normal. His troponin is negative. PAST MEDICAL HISTORY: As described above including hyperlipidemia, hypertension, asthma, DVT, and GI bleed. SOCIAL HISTORY: No current tobacco or alcohol use. REVIEW OF SYSTEMS: A 10-point review of systems is reviewed as above, otherwise negative. PHYSICAL EXAMINATION: GENERAL: Patient is a pleasant man, who is in no acute distress. The patient appears their stated age. VITAL SIGNS: Blood pressure 135/65, pulse 84, temperature afebrile. NEUROLOGIC: The patient is alert and oriented x3 with no focal neurologic deficits. HEENT: Sclerae without icterus. Mouth has moist mucous membranes with normal pallor. NECK: No JVD. Carotid upstroke brisk. No bruits bilaterally. LUNGS: Clear to auscultation with unlabored respirations. BACK: No scoliosis or kyphosis. CARDIAC: Regular rate and rhythm with normal S1 and S2. No S3 or S4 noted. No significant rubs, murmurs, thrills, or gallops noted throughout the precordium. PMI is not displaced. There is no parasternal heave. ABDOMEN: Soft, nontender, nondistended. No peritoneal signs present. No hepatosplenomegaly. No abnormal striae. EXTREMITIES: 2+ femoral and 2+ dorsalis pedis pulses. No cyanosis, clubbing, or edema. SKIN: No gross abnormalities. PERTINENT LABORATORY DATA: Hemoglobin 13.1. Troponin negative. EKG normal sinus rhythm with nonspecific ST-T wave changes. IMPRESSION: 1. Chest pain. 2. Coronary artery disease. RECOMMENDATIONS: I do not feel Mr. Santos's symptoms are anginal related. We would seek a noncardiac cause. He may benefit from a CT scan of his chest, although one was done last month with no significant abnormalities present. He did state morphine seemed to make the pain better. Given no objective findings and a recent angio (results currently pending), I would recommend continued medical therapy and seeking a noncardiac cause to his symptoms. Job ID: [id number]
--- NOTE | 2019-06-23 16:00 | EKG ---
Test Reason : Blood Pressure : / mmHG Vent. Rate : 090 BPM Atrial Rate : 090 BPM P-R Int : 146 ms QRS Dur : 070 ms QT Int : 366 ms P-R-T Axes : 065 019 011 degrees QTc Int : 447 ms Normal sinus rhythm Normal ECG Confirmed by LACIE BONDS, SHAN ([id number]), staff editor JUDIT CARRILLO ([id number]) on 06/23/2019 4:00:09 PM Referred By: Confirmed By:SHAN MEDELLIN MD
[2019-06-23] MEDS: traMADol HCl 50 MG TAB PO PRN (19:57)
[2019-06-23] MEDS: Atorvastatin Calcium 40 MG TAB PO SCH (19:58)
[2019-06-23] MEDS: Enoxaparin Sodium 100 MG/ML SYRINGE SC SCH (19:59)
[2019-06-24] MEDS: Acetaminophen 325 MG TAB PO PRN ×2 (04:52→11:45)
[2019-06-24 06:32] LABS: Hemoglobin 13.4 g/dL (14.0-18.0); Mean Corpuscular HGB CONC 34.8 g/dL (32.0-36.0); Mean Corpuscular Hemoglobin 33.7 pg (27.0-31.0); Mean Corpuscular Volume 96.8 fL (78.0-98.0); Mean Platelet Volume 8.1 fL (7.4-10.4); Platelet Count 166 thou/uL (130-400); RBC Distribution Width 12.3 % (11.5-14.5); Red Blood Cell (RBC) Count 3.98 mill/uL (4.70-6.10)
[2019-06-24] MEDS: Lisinopril 5 MG TAB PO SCH (08:15)
[2019-06-24] MEDS: Aspirin 81 mg Enteric Coated Tablet PO SCH (08:16)
[2019-06-24] MEDS: Clopidogrel Bisulfate 75 MG TAB PO SCH (08:16)
[2019-06-24] MEDS: Carvedilol 3.125 MG TAB PO SCH ×2 (08:16→20:31)
[2019-06-24] MEDS: Terazosin HCl 5 MG CAP PO SCH (08:17)
[2019-06-24] MEDS: Enoxaparin Sodium 100 MG/ML SYRINGE SC SCH ×2 (08:18→20:31)
[2019-06-24] MEDS: traMADol HCl 50 MG TAB PO PRN ×3 (09:06→23:44)
--- NOTE | 2019-06-24 10:36 | EKG ---
Test Reason : Blood Pressure : / mmHG Vent. Rate : 089 BPM Atrial Rate : 089 BPM P-R Int : 176 ms QRS Dur : 078 ms QT Int : 372 ms P-R-T Axes : 060 022 005 degrees QTc Int : 452 ms Normal sinus rhythm Normal ECG When compared with ECG of 22-JUN-2019 21:41, (Unconfirmed) No significant change was found Confirmed by DR. Jesus LOWERY ([id number]) on 06/24/2019 10:36:22 AM Referred By: TOBIN Confirmed By:DR. Jesus LOWERY
[2019-06-24] MEDS: Nitroglycerin 0.4 MG TAB (25 Tab Bottle) SL PRN ×6 (11:26→12:59)
[2019-06-24 11:34] LABS: Hemoglobin A1c 5.6 % (4.0-6.0)
[2019-06-24] MEDS ORDERED: Nitroglycerin 0.4 MG TAB (25 Tab Bottle) SL PRN (13:13)
--- NOTE | 2019-06-24 14:22 | PDOC.HOSPP ---
- Subjective Encounter Date: 06/24/19 Encounter Time: 14:20 Subjective: 48 y/o male with CAD s/p stents with recent cardiac cath on 06/20/[address] [facility] showing patent stents to LAD and RCA now readmitted with anterior and upper mid back pain associated with left upper limb numbness. Complains of feeling unwell. Patient has no overt distress yet complaining of severe chest pain. Malingering is a concern. - Objective Vital Signs & Weight: Vital Signs (12 hours) Temp Pulse Resp BP BP Pulse Ox 06/24/19 14:12 97.7 F 83 16 155/83 H 98 06/24/19 12:10 97.3 F L 90 20 132/70 93 L 06/24/19 08:15 64 06/24/19 07:42 98 F 64 20 154/87 H 95 06/24/19 04:52 98.2 F 77 18 112/53 L 97 Weight Admit Weight 209 lb 8 oz Weight 199 lb 8 oz I&O: 06/23/19 06/24/19 06/25/19 06:59 06:59 06:59 Intake Total 1200 1380 Output Total 1400 Balance -200 1380 Result Diagrams: 06/24/19 06:24 06/23/19 03:52 Hospitalist ROS - Medication Medications: Active Medications Generic Name Dose Route Start Last Admin Trade Name Freq PRN Reason Stop Dose Admin Acetaminophen 650 mg 06/23/19 11:18 06/24/19 11:45 Tylenol PO 650 mg Q6H PRN Administration Headache/Fever or MILD Pain Aspirin 81 mg 06/23/19 09:00 06/24/19 08:16 Ecotrin PO 81 mg DAILY NIKKIE Administration Atorvastatin Calcium 80 mg 06/23/19 21:00 06/23/19 19:58 Lipitor PO 80 mg HS NIKKIE Administration Carvedilol 6.25 mg 06/23/19 09:00 06/24/19 08:16 Coreg PO 6.25 mg BID NIKKIE Administration Clopidogrel Bisulfate 75 mg 06/23/19 09:00 06/24/19 08:16 Plavix PO 75 mg QAM NIKKIE Administration Enoxaparin Sodium 90 mg 06/23/19 21:00 06/24/19 08:18 Lovenox SC 90 mg 0900,2100 NIKKIE Administration Lisinopril 2.5 mg 06/23/19 09:00 06/24/19 08:15 Zestril PO 2.5 mg DAILY NIKKIE Administration Pantoprazole Sodium 40 mg 06/23/19 09:00 06/24/19 08:17 Protonix PO 40 mg DAILY NIKKIE Administration Sertraline HCl 50 mg 06/23/19 21:00 06/23/19 19:59 Zoloft PO 50 mg HS NIKKIE Administration Terazosin HCl 10 mg 06/23/19 09:00 06/24/19 08:17 Hytrin PO 10 mg DAILY NIKKIE Administration Tramadol HCl 50 mg 06/23/19 19:10 06/24/19 09:06 Ultram PO 50 mg Q6H PRN Administration Moderate Pain (4-6) - Exam General Appearance: awake alert Eye: anicteric sclera ENT: normocephalic atraumatic Neck: supple, symmetric Heart: RRR Respiratory: no wheezes, no rales, no ronchi, normal chest expansion Gastrointestinal: soft, non-tender, non-distended, normal bowel sounds Extremities: no cyanosis, no edema Neurological: cranial nerve grossly intact, no focal deficits Psychiatric: A&O x 3 Hosp A/P (1) Unstable angina pectoris due to coronary arteriosclerosis Code(s): I25.110 - ATHSCL HEART DISEASE OF [place] COR ART W UNSTABLE ANG PCTRS Status: Acute (2) BPH (benign prostatic hyperplasia) Code(s): N40.0 - BENIGN PROSTATIC HYPERPLASIA WITHOUT LOWER URINRY TRACT SYMP Status: Chronic Qualifiers: Lower urinary tract symptom presence: symptoms present Lower urinary tract symptom detail: urinary hesitancy Qualified Code(s): N40.1 - Benign prostatic hyperplasia with lower urinary tract symptoms; R39.11 - Hesitancy of micturition ; R39.11 - Hesitancy of micturition (3) CAD (coronary artery disease) Code(s): I25.10 - ATHSCL HEART DISEASE OF [place] CORONARY ARTERY W/O ANG PCTRS Status: Chronic Qualifiers: Coronary Disease-Associated Artery/Lesion type: [place] artery [place] vs. transplanted heart: [place] heart Associated angina: with stable angina Qualified Code(s): I25.118 - Atherosclerotic heart disease of [place] coronary artery with other forms of angina pectoris (4) GERD (gastroesophageal reflux disease) Code(s): K21.9 - GASTRO-ESOPHAGEAL REFLUX DISEASE WITHOUT ESOPHAGITIS Status: Chronic Qualifiers: Esophagitis presence: esophagitis presence not specified Qualified Code(s) : K21.9 - Gastro-esophageal reflux disease without esophagitis (5) HLD (hyperlipidemia) Code(s): E78.5 - HYPERLIPIDEMIA, UNSPECIFIED Status: Chronic Qualifiers: Hyperlipidemia type: unspecified Qualified Code(s): E78.5 - Hyperlipidemia , unspecified (6) HTN (hypertension) Code(s): I10 - ESSENTIAL (PRIMARY) HYPERTENSION Status: Chronic Qualifiers: Hypertension type: essential hypertension Qualified Code(s): I10 - Essential (primary) hypertension - Plan Continue antithrombotic therapy with lovenox anticoagulation and double antiplatelets Continue coreg, statin, imdur and lisinopril increase imdur to 60 bid. SL nitro and analgesic as needed. discussed with global lead who will re evaluate patient in view of available recent cardiac cath report
[2019-06-24] MEDS: Nitroglycerin 0.4mg/Hour PATCH TD SCH (16:10)
[2019-06-24] MEDS: Atorvastatin Calcium 40 MG TAB PO SCH (20:30)
--- NOTE | 2019-06-25 | PDOC.CPN ---
- Subjective Date: 06/24/19 Time: 16:00 Interval history: Patient with c/o CP. States it's constant and about a 5. Worse this afternoon. Dulled by SL nitro. No SOB or HENRY. - Review of Systems General: denies: fever/chills, weight/appetite/sleep changes, night sweats, fatigue Respiratory: denies: cough, congestion, shortness of breath, exercise intolerance Cardiovascular: reports: chest pain Gastrointestinal: denies: nausea, vomiting, diarrhea, constipation, abd pain, GI bleeding Musculoskeletal: denies: pain, tenderness, stiffness, swelling, arthritis/ arthralgias Neurological: denies: numbness, syncope, seizure, weakness - Objective Allergies/Adverse Reactions: Allergies Allergy/AdvReac Type Severity Reaction Status Date / Time Cephalosporins Allergy Verified 04/22/18 20:39 influenza virus vaccine, Allergy Verified 04/22/18 20:39 specific [influenza virus vacc,specific] iodine Allergy Verified 04/22/18 20:39 Penicillins Allergy Verified 04/22/18 20:39 pneumococcal vaccine Allergy Verified 04/22/18 20:39 Sulfa (Sulfonamide Allergy Verified 04/22/18 20:39 Antibiotics) Tetanus Vaccines and Toxoid Allergy Verified 04/22/18 20:39 [Tetanus Vaccines & Toxoid] Visit Medications: Current Medications Acetaminophen (Tylenol) 650 mg PO Q6H PRN PRN Reason: Headache/Fever or MILD Pain Last Admin: 06/24/19 11:45 Dose: 650 mg Aspirin (Ecotrin) 81 mg PO DAILY [facility] Last Admin: 06/24/19 08:16 Dose: 81 mg Atorvastatin Calcium (Lipitor) 80 mg PO HS [facility] Last Admin: 06/24/19 20:30 Dose: 80 mg Carvedilol (Coreg) 6.25 mg PO BID [facility] Last Admin: 06/24/19 20:31 Dose: 6.25 mg Clopidogrel Bisulfate (Plavix) 75 mg PO QAM [facility] Last Admin: 06/24/19 08:16 Dose: 75 mg Enoxaparin Sodium (Lovenox) 90 mg SC 0900,2100 [facility] Last Admin: 06/24/19 20:31 Dose: 90 mg Lisinopril (Zestril) 2.5 mg PO DAILY [facility] Last Admin: 06/24/19 08:15 Dose: 2.5 mg Nitroglycerin (Nitrostat) 0.4 mg SL Q5MIN PRN PRN Reason: Chest Pain Nitroglycerin (Nitro-Dur 0.4mg/Hr Patch) 1 patch TD Q24HR [facility] Last Admin: 06/24/19 16:10 Dose: 1 patch Pantoprazole Sodium (Protonix) 40 mg PO DAILY [facility] Last Admin: 06/24/19 08:17 Dose: 40 mg Ranolazine (Ranexa) 500 mg PO BID [facility] Last Admin: 06/24/19 20:31 Dose: 500 mg Sertraline HCl (Zoloft) 50 mg PO HS [facility] Last Admin: 06/24/19 20:31 Dose: 50 mg Terazosin HCl (Hytrin) 10 mg PO DAILY [facility] Last Admin: 06/24/19 08:17 Dose: 10 mg Tramadol HCl (Ultram) 50 mg PO Q6H PRN PRN Reason: Moderate Pain (4-6) Last Admin: 06/24/19 23:44 Dose: 50 mg Vital Signs & Weight: Vital Signs Temp Pulse Resp BP Pulse Ox 06/24/19 23:42 80 15 146/96 H 06/24/19 19:47 97.7 F 74 16 132/75 98 06/24/19 17:17 77 134/78 06/24/19 16:28 122/83 06/24/19 15:22 97 F L 85 20 162/94 H 98 06/24/19 14:12 97.7 F 83 16 155/83 H 98 06/24/19 12:10 97.3 F L 90 20 132/70 93 L Admit Weight 209 lb 8 oz Weight 199 lb 8 oz - Physical Exam General: alert & oriented x3, appears well Neck: supple neck Cardiac: regular rate and rhythm, no murmur Lungs: clear to auscultation, normal breath sounds Abdomen: unremarkable, active bowel sounds, non-tender Skin: clear Musculoskeletal: normal range of motion - Labs Result Diagrams: 06/24/19 06:24 06/23/19 03:52 Troponin/CKMB Troponin I Less than 0.010 ng/mL (< 0.028) 06/23/19 01:30 - Assessment/Plan Assessment/Plan: 1. CP 2. Hx nonobstructive CAD and patent stent on cath done in the last week Patient with recurrent left sided CP. No acute EKG changes. Does not resemble UA. Will add ranexa and change imdur to nitro-patch as trial. Consider other source.
[2019-06-25] MEDS: Acetaminophen 325 MG TAB PO PRN ×2 (02:22→09:40)
[2019-06-25] MEDS: traMADol HCl 50 MG TAB PO PRN (06:09)
--- NOTE | 2019-06-25 08:22 | PRG ---
DATE OF SERVICE: 06/25/2019 SUBJECTIVE: Mr. Cook continue to complain of severe chest pain, it is to the left of the midline, goes straight through to his back. He says he feels numb in his left arm. He says the pain is worse when he tries to lie down. It is better when he sits up. OBJECTIVE: VITAL SIGNS: Blood pressure 138/90, pulse 70. LUNGS: Clear. CARDIAC: Normal S1, normal S2. ASSESSMENT: 1. Recent cardiac catheterization showing some distal atherosclerosis, but no obstructive coronary artery disease. 2. Chest pain atypical for angina. 3. History of hypertension. 4. History of hypercholesterolemia. At this time, the patient's pain does not appear to be due to ischemic heart disease. Other possibilities could be pericardial pain versus musculoskeletal pain. Also, I think he likely has some element of cervical spine related to the discomfort and pain into his left arm. PLAN: 1. Start colchicine and nonsteroidal anti-inflammatories today. 2. We would recommend consideration for MRI of the cervical spine to evaluate the cervical spine that is probably causing some of his left arm pain, may have more than one thing causing pain, but does not appear to be due to ischemic heart disease. Job ID: [id number]
[2019-06-25] MEDS ORDERED: diphenhydrAMINE 50 MG/ML VIAL IVP PRN (08:49)
[2019-06-25] MEDS ORDERED: Hydrocortisone Sod Succ/PF 100 mg/2 ml Vial IVP SCH (09:00)
[2019-06-25] MEDS ORDERED: methylPREDNISolone Sod Succ/PF 125 MG/2 ML VIAL IVP SCH (09:00)
[2019-06-25] MEDS: Aspirin 81 mg Enteric Coated Tablet PO SCH (09:38)
[2019-06-25] MEDS: Lisinopril 5 MG TAB PO SCH (09:38)
[2019-06-25] MEDS: Enoxaparin Sodium 100 MG/ML SYRINGE SC SCH ×2 (09:38→20:52)
[2019-06-25] MEDS: Clopidogrel Bisulfate 75 MG TAB PO SCH (09:38)
[2019-06-25] MEDS: Colchicine 0.6 MG TAB PO SCH ×2 (09:38→20:50)
[2019-06-25] MEDS: Terazosin HCl 5 MG CAP PO SCH (09:39)
[2019-06-25] MEDS ORDERED: Famotidine/PF 20 mg/2ml Vial IVPB SCH (10:00)
--- NOTE | 2019-06-25 12:19 | CT ---
CT ANGIOGRAM THORAX WITH IV CONTRAST AND 3-D RECONSTRUCTIONS CLINICAL INDICATION: Elevated d-dimer, chest pain, and shortness of breath for past 2 months. COMPARISON: 06/22/2019 FINDINGS: Pulmonary arteries: No filling defects are seen in the pulmonary arteries to suggest a pulmonary embo silvia. Aorta: The aorta is normal in caliber without evidence of an aortic dissection. There are vascular ca lcifications seen in the coronary arteries. Lungs: Tiny bilateral pleural effusions and associated passive atelectasis are again seen. No consoli dation or pulmonary nodule is seen. Mediastinum: There is no evidence of lymphadenopathy. Thyroid gland: Normal CT appearance. Osseous structures: Degenerative changes are seen in the spine. Chest wall: No abnormality visualized. Upper abdomen: Within normal limits for phase of imaging. IMPRESSION: 1. No CT evidence of a pulmonary embolus. 2. Tiny bilateral pleural effusions and associated passive atelectasis.
[2019-06-25] MEDS ORDERED: Iopamidol 370 76% 100 ML VIAL ONE (13:11)
[2019-06-25] MEDS: Ketorolac Tromethamine 30 MG/ML VIAL IVP SCH ×3 (13:13→23:40)
[2019-06-25] MEDS: Nitroglycerin 0.4mg/Hour PATCH TD SCH (17:28)
--- NOTE | 2019-06-25 18:20 | MRI ---
EXAM: MRI cervical spine without and with contrast HISTORY: Neck pain and left arm pain for 2 months COMPARISON: None TECHNIQUE: Multiplanar multisequence MR images were obtained of the cervical spine without and with c ontrast. FINDINGS: The vertebral bodies and intervertebral discs demonstrate normal height and alignment without fractur e or subluxation. Generalized disc desiccation is seen. A well-circumscribed focus of high T2 signal within the C2 vertebral body likely represents a small hemangioma. The visualized cord demonstrates normal signal throughout. The craniocervical junction is unremarkab le. Anterior osteophytes are seen throughout the cervical spine. No abnormal enhancement is seen on this examination. A large fatty lump is seen in the posterior neck. There is possible scarring in the posterior neck ne ar the skull base. The prevertebral soft tissues are unremarkable. C2/3: No significant posterior bulge or protrusion. No posterior facet arthrosis. No central canal stenosis. No neural foraminal stenosis. C3/4: No significant posterior bulge or protrusion. Mild bilateral posterior facet arthrosis. No ce ntral canal stenosis. Mild left neural foraminal stenosis. C4/5: A small disc osteophyte complex is seen. Mild bilateral posterior facet arthrosis. No central canal stenosis. Moderate right neural foraminal stenosis. C5/6: A small disc osteophyte complex is seen. No posterior facet arthrosis. Mild central canal avery nosis. No neural foraminal stenosis. C6/7: A small disc osteophyte complex is seen. Mild bilateral posterior facet arthrosis. Mild centr al canal stenosis. No neural foraminal stenosis. C7/T1: No significant posterior bulge or protrusion. No posterior facet arthrosis. No central canal stenosis. No neural foraminal stenosis. IMPRESSION: Degenerative changes of the cervical spine as above.
--- NOTE | 2019-06-25 20:03 | PDOC.HOSPP ---
- Subjective Encounter Date: 06/25/19 Encounter Time: 08:53 Subjective: 48 y/o male with CAD s/p stents with recent cardiac cath on 06/20/2019 at [facility] showing patent stents to LAD and RCA now readmitted with anterior and upper mid back pain associated with left upper limb numbness. Still complaining of upper mid back and left chest associated with left upper limb numbness. also admitted to neck pain. - Objective Vital Signs & Weight: Vital Signs (12 hours) Temp Pulse Resp BP BP Pulse Ox 06/25/19 16:06 97.9 F 72 18 130/76 96 06/25/19 11:51 97.1 F L 72 14 137/100 H 95 06/25/19 09:38 77 143/99 H Weight Admit Weight 209 lb 8 oz Weight 199 lb 8 oz I&O: 06/24/19 06/25/19 06/26/19 06:59 06:59 06:59 Intake Total 1380 2200 1240 Balance 1380 2200 1240 Result Diagrams: 06/24/19 06:24 06/23/19 03:52 Hospitalist ROS - Medication Medications: Active Medications Generic Name Dose Route Start Last Admin Trade Name Freq PRN Reason Stop Dose Admin Acetaminophen 650 mg 06/23/19 11:18 06/25/19 09:40 Tylenol PO 650 mg Q6H PRN Administration Headache/Fever or MILD Pain Aspirin 81 mg 06/23/19 09:00 06/25/19 09:38 Ecotrin PO 81 mg DAILY NIKKIE Administration Atorvastatin Calcium 80 mg 06/23/19 21:00 06/24/19 20:30 Lipitor PO 80 mg HS NIKKIE Administration Clopidogrel Bisulfate 75 mg 06/23/19 09:00 06/25/19 09:38 Plavix PO 75 mg QAM NIKKIE Administration Colchicine 0.6 mg 06/25/19 09:00 06/25/19 09:38 Colchicine PO 0.6 mg BID NIKKIE Administration Diphenhydramine HCl 50 mg 06/25/19 08:49 06/25/19 11:08 Benadryl IVP 50 mg WILLCALL PRN Administration Itching & Insomnia Enoxaparin Sodium 90 mg 06/23/19 21:00 06/25/19 09:38 Lovenox SC 90 mg 0900,2100 NIKKIE Administration Famotidine 20 mg 06/25/19 10:00 06/25/19 11:07 Pepcid IVPB 20 mg WILLCALL NIKKIE Administration Ketorolac Tromethamine 30 mg 06/25/19 12:00 06/25/19 17:27 Toradol IVP 06/30/19 12:01 30 mg Q6HR NIKKIE Administration Lisinopril 2.5 mg 06/23/19 09:00 06/25/19 09:38 Zestril PO 2.5 mg DAILY NIKKIE Administration Methylprednisolone Sodium Succinate 125 mg 06/25/19 09:00 06/25/19 11:07 Solu-Medrol IVP 125 mg WILLCALL NIKKIE Administration Metoprolol Succinate 50 mg 06/25/19 09:00 06/25/19 09:39 Toprol Xl PO 50 mg DAILY NIKKIE Administration Nitroglycerin 1 patch 06/24/19 16:00 06/25/19 17:28 Nitro-Dur 0.4mg/Hr Patch TD 1 patch Q24HR NIKKIE Administration Pantoprazole Sodium 40 mg 06/23/19 09:00 06/25/19 09:39 Protonix PO 40 mg DAILY NIKKIE Administration Ranolazine 500 mg 06/24/19 21:00 06/25/19 09:39 Ranexa PO 500 mg BID NIKKIE Administration Sertraline HCl 50 mg 06/23/19 21:00 06/24/19 20:31 Zoloft PO 50 mg HS NIKKIE Administration Terazosin HCl 10 mg 06/23/19 09:00 06/25/19 09:39 Hytrin PO 10 mg DAILY NIKKIE Administration Tramadol HCl 50 mg 06/23/19 19:10 06/25/19 06:09 Ultram PO 50 mg Q6H PRN Administration Moderate Pain (4-6) - Exam General Appearance: awake alert Eye: anicteric sclera ENT: normocephalic atraumatic Neck: supple, symmetric Heart: RRR Respiratory: no wheezes, no rales, no ronchi Gastrointestinal: soft, non-tender, non-distended, normal bowel sounds Extremities: no edema Neurological: cranial nerve grossly intact, no focal deficits Psychiatric: A&O x 3 Hosp A/P (1) Unstable angina pectoris due to coronary arteriosclerosis Code(s): I25.110 - ATHSCL HEART DISEASE OF [place] COR ART W UNSTABLE ANG PCTRS Status: Acute (2) BPH (benign prostatic hyperplasia) Code(s): N40.0 - BENIGN PROSTATIC HYPERPLASIA WITHOUT LOWER URINRY TRACT SYMP Status: Chronic Qualifiers: Lower urinary tract symptom presence: symptoms present Lower urinary tract symptom detail: urinary hesitancy Qualified Code(s): N40.1 - Benign prostatic hyperplasia with lower urinary tract symptoms; R39.11 - Hesitancy of micturition ; R39.11 - Hesitancy of micturition (3) CAD (coronary artery disease) Code(s): I25.10 - ATHSCL HEART DISEASE OF [place] CORONARY ARTERY W/O ANG PCTRS Status: Chronic Qualifiers: Coronary Disease-Associated Artery/Lesion type: [place] artery [place] vs. transplanted heart: [place] heart Associated angina: with stable angina Qualified Code(s): I25.118 - Atherosclerotic heart disease of [place] coronary artery with other forms of angina pectoris (4) GERD (gastroesophageal reflux disease) Code(s): K21.9 - GASTRO-ESOPHAGEAL REFLUX DISEASE WITHOUT ESOPHAGITIS Status: Chronic Qualifiers: Esophagitis presence: esophagitis presence not specified Qualified Code(s) : K21.9 - Gastro-esophageal reflux disease without esophagitis (5) HLD (hyperlipidemia) Code(s): E78.5 - HYPERLIPIDEMIA, UNSPECIFIED Status: Chronic Qualifiers: Hyperlipidemia type: unspecified Qualified Code(s): E78.5 - Hyperlipidemia , unspecified (6) HTN (hypertension) Code(s): I10 - ESSENTIAL (PRIMARY) HYPERTENSION Status: Chronic Qualifiers: Hypertension type: essential hypertension Qualified Code(s): I10 - Essential (primary) hypertension - Plan Continue antithrombotic therapy with lovenox anticoagulation and double antiplatelets Continue coreg, statin, imdur and lisinopril Get MRI c Spine as well as CTA chest to rule PE given elevated D dimer SL nitro and analgesic as needed. Other treatment as per cardiology.
[2019-06-25] MEDS: Atorvastatin Calcium 40 MG TAB PO SCH (20:51)
[2019-06-26] MEDS: traMADol HCl 50 MG TAB PO PRN ×2 (04:53→14:07)
[2019-06-26] MEDS: Acetaminophen 325 MG TAB PO PRN ×2 (04:53→14:08)
[2019-06-26] MEDS: Ketorolac Tromethamine 30 MG/ML VIAL IVP SCH ×2 (06:10→12:27)
--- NOTE | 2019-06-26 07:21 | EKG ---
Test Reason : Blood Pressure : / mmHG Vent. Rate : 099 BPM Atrial Rate : 099 BPM P-R Int : 138 ms QRS Dur : 080 ms QT Int : 356 ms P-R-T Axes : 063 015 016 degrees QTc Int : 456 ms Normal sinus rhythm Normal ECG When compared with ECG of 23-JUN-2019 06:35, No significant change was found Confirmed by DR. Jesus LOWERY ([id number]) on 06/26/2019 7:21:15 AM Referred By: TOBIN Confirmed By:DR. Jesus LOWERY
[2019-06-26] MEDS: Terazosin HCl 5 MG CAP PO SCH (09:08)
[2019-06-26] MEDS: Aspirin 81 mg Enteric Coated Tablet PO SCH (09:08)
[2019-06-26] MEDS: Colchicine 0.6 MG TAB PO SCH (09:08)
[2019-06-26] MEDS: Lisinopril 5 MG TAB PO SCH (09:09)
[2019-06-26] MEDS: Clopidogrel Bisulfate 75 MG TAB PO SCH (09:09)
[2019-06-26] MEDS: Enoxaparin Sodium 100 MG/ML SYRINGE SC SCH (09:09)
[2019-06-26 14:13] LABS: Platelet Count 171 thou/uL (130-400)
[2019-06-26 14:32] LABS: Calc. Creatinine Clearance 133 mL/min (70-130); Estimated GFR-MDRD Greater than 90
--- NOTE | 2019-06-26 14:56 | PDOC.HOSPP ---
- Subjective Encounter Date: 06/26/19 Encounter Time: 14:54 Subjective: Mr. Cook was seen today in follow-up of chest pain. He continues to have pain radiation to his back. He now tells us that he has a history of bleeding ulcers. - Objective Vital Signs & Weight: Vital Signs (12 hours) Temp Pulse Resp BP Pulse Ox 06/26/19 12:00 98.4 F 68 20 166/80 H 95 06/26/19 09:09 80 06/26/19 07:51 97.4 F L 80 20 159/82 H 97 06/26/19 04:12 97.8 F 84 15 133/71 94 L Weight Admit Weight 209 lb 8 oz Weight 199 lb 3.2 oz I&O: 06/25/19 06/26/19 06/27/19 06:59 06:59 06:59 Intake Total 2200 1962 Output Total 1550 Balance 2200 412 Result Diagrams: 06/26/19 14:02 06/26/19 14:02 Hospitalist ROS - Medication Medications: Active Medications Generic Name Dose Route Start Last Admin Trade Name Freq PRN Reason Stop Dose Admin Acetaminophen 650 mg 06/23/19 11:18 06/26/19 14:08 Tylenol PO 650 mg Q6H PRN Administration Headache/Fever or MILD Pain Aspirin 81 mg 06/23/19 09:00 06/26/19 09:08 Ecotrin PO 81 mg DAILY NIKKIE Administration Atorvastatin Calcium 80 mg 06/23/19 21:00 06/25/19 20:51 Lipitor PO 80 mg HS NIKKIE Administration Clopidogrel Bisulfate 75 mg 06/23/19 09:00 06/26/19 09:09 Plavix PO 75 mg QAM NIKKIE Administration Diphenhydramine HCl 50 mg 06/25/19 08:49 06/25/19 11:08 Benadryl IVP 50 mg WILLCALL PRN Administration Itching & Insomnia Famotidine 20 mg 06/25/19 10:00 06/25/19 11:07 Pepcid IVPB 20 mg WILLCALL NIKKIE Administration Lisinopril 2.5 mg 06/23/19 09:00 06/26/19 09:09 Zestril PO 2.5 mg DAILY NIKKIE Administration Methylprednisolone Sodium Succinate 125 mg 06/25/19 09:00 06/25/19 11:07 Solu-Medrol IVP 125 mg WILLCALL NIKKIE Administration Metoprolol Succinate 50 mg 06/25/19 09:00 06/26/19 09:09 Toprol Xl PO 50 mg DAILY NIKKIE Administration Pantoprazole Sodium 40 mg 06/23/19 09:00 06/26/19 09:09 Protonix PO 40 mg DAILY NIKKIE Administration Ranolazine 500 mg 06/24/19 21:00 06/26/19 09:09 Ranexa PO 500 mg BID NIKKIE Administration Sertraline HCl 50 mg 06/23/19 21:00 06/25/19 20:50 Zoloft PO 50 mg HS NIKKIE Administration Sodium Chloride 10 ml 06/26/19 09:00 06/26/19 09:10 Flush - Normal Saline IVF 10 ml Q12HR NIKKIE Administration Terazosin HCl 10 mg 06/23/19 09:00 06/26/19 09:08 Hytrin PO 10 mg DAILY NIKKIE Administration Tramadol HCl 50 mg 06/23/19 19:10 06/26/19 14:07 Ultram PO 50 mg Q6H PRN Administration Moderate Pain (4-6) - Exam Eye: PERRL, anicteric sclera Heart: RRR, no murmur, no gallops, no rubs, normal peripheral pulses Respiratory: CTAB, no wheezes, no rales, no ronchi, normal chest expansion, no tachypnea, normal percussion Gastrointestinal: soft, non-tender, non-distended, normal bowel sounds, no palpable masses, no hepatomegaly, no splenomegaly Extremities: no cyanosis, no clubbing Hosp A/P (1) Chest pain Code(s): R07.9 - CHEST PAIN, UNSPECIFIED Status: Acute (2) BPH (benign prostatic hyperplasia) Code(s): N40.0 - BENIGN PROSTATIC HYPERPLASIA WITHOUT LOWER URINRY TRACT SYMP Status: Chronic Qualifiers: Lower urinary tract symptom presence: symptoms present Lower urinary tract symptom detail: urinary hesitancy Qualified Code(s): N40.1 - Benign prostatic hyperplasia with lower urinary tract symptoms; R39.11 - Hesitancy of micturition ; R39.11 - Hesitancy of micturition (3) CAD (coronary artery disease) Code(s): I25.10 - ATHSCL HEART DISEASE OF [place] CORONARY ARTERY W/O ANG PCTRS Status: Chronic Qualifiers: Coronary Disease-Associated Artery/Lesion type: [place] artery [place] vs. transplanted heart: [place] heart Associated angina: with stable angina Qualified Code(s): I25.118 - Atherosclerotic heart disease of [place] coronary artery with other forms of angina pectoris (4) HTN (hypertension) Code(s): I10 - ESSENTIAL (PRIMARY) HYPERTENSION Status: Chronic Qualifiers: Hypertension type: essential hypertension Qualified Code(s): I10 - Essential (primary) hypertension - Plan * Chest pain- probable non-cardiac * Discussed with Dr. Mcfadden * Will discharge him on a trial of Carafate
[2019-06-26 15:28] VITALS: BP 153/78; TEMP 98.1
--- NOTE | 2019-06-27 00:31 | DIS ---
DATE OF ADMISSION: 06/22/2019 DATE OF DISCHARGE: 06/26/2019 PRIMARY CARE PHYSICIAN: [facility]. DISCHARGE DISPOSITION: Back to the halfway. DISCHARGE MEDICATIONS: 1. Carafate 1 g p.o. t.i.d. 2. Ranexa 500 mg twice daily. 3. Metoprolol-XL 50 mg daily. 4. Plavix 75 mg daily. 5. Hytrin 10 mg p.o. daily. 6. Zoloft 50 mg at bedtime. 7. Prilosec 20 mg daily. 8. Nitrostat 0.4 sublingual q.5 minutes as needed. 9. Lisinopril 2.5 mg p.o. daily. 10. Imdur extended release 60 mg daily. 11. Carvedilol 6.25 mg p.o. twice daily. 12. Atorvastatin 80 mg at bedtime. 13. Aspirin 81 mg daily. 14. ProAir two puffs q.4 hours as needed. 15. Tylenol as needed. IMAGING DURING THE HOSPITAL STAY: The patient had a CT scan dissection protocol in which there was no evidence of aneurysm or dissection. The patient had a MRI of the cervical spine in which there were some degenerative changes noted. The patient also had a CT angiogram of the chest showing no evidence of PE. CODE STATUS: Full code. ALLERGIES: TO CEPHALOSPORINS, INFLUENZA VIRUS VACCINE, IODINE, SULFA, PENICILLIN, AND PNEUMOCOCCAL VACCINE. HOSPITAL COURSE: Mr. Cook is a 48-year-old gentleman, who [facility] due to complaints of chest pain. He had recently had an evaluation at an outside facility for this similar complaints. At that time, they had done a cardiac catheterization. He was placed in observation. These records were obtained. He was found to have nonobstructive coronary artery disease. His symptoms were felt not to be cardiac. Therefore, CT of the chest was done and PE was ruled out. He was treated empirically for possible pericarditis with colchicine and high-dose NSAIDs without much relief. At the time of discharge, he mentioned that he had been diagnosed at one time with peptic ulcer disease. He had no signs of bleeding. In fact, his H and H actually increased during his hospital stay. He will be placed empirically on Carafate in addition to Protonix as a trial and [facility]. He is also being treated with maximal treatment for coronary artery disease as well. Job ID: [id number]
--- NOTE | 2019-06-27 16:39 | EKG ---
Test Reason : Blood Pressure : / mmHG Vent. Rate : 080 BPM Atrial Rate : 080 BPM P-R Int : 158 ms QRS Dur : 084 ms QT Int : 394 ms P-R-T Axes : 050 008 012 degrees QTc Int : 454 ms Normal sinus rhythm Normal ECG When compared with ECG of 23-JUN-2019 06:35, No significant change was found Confirmed by DR. Moshe BERRIOS ([id number]) on 06/27/2019 4:38:55 PM Referred By: KUSHAL Confirmed By:DR. Moshe BERRIOS
--- NOTE | 2019-06-28 21:39 | PQF ---
[employer] Desktop Support Manager [employer] YomiLUISLIENCARRI ALFORD DARRION DEAN MD [id number] CLINICAL DOCUMENTATION CLARIFICATION FORM: POST DISCHARGE Addendum to original discharge summary date: ____ Late entry note date: __ DATE: 06/29/2019 ATTN: DARRION DEAN MD Please exercise your independent, professional judgment in responding to the clarification form. Clinical indicators are provided on the bottom of this form for your review Etiology of Chest Pain: Please check appropriate box(s): [ ] Chest pain due to Pericarditis [ ] Chest pain due to Peptic ulcer disease [ ] Chest pain due to GERD [ ] Chest pain due Musk[place] pain [ ] Angina with known coronary artery disease [ ] Angina:[ ] Stable[ ] Unstable [ ] Other diagnosis [ X] Unable to determine In addition, please specify: Present on Admission (POA): [ X ] Yes [ ] No [ ] Unable to determine For continuity of documentation, please document condition throughout progress notes and discharge summary. Thank You. CLINICAL INDICATORS - SIGNS / SYMPTOMS /LABS Chest pain atypical for angina- Progress notes on 06/25 by Lesa Burden MD severe chest pain it is to the left of the midline goes straight through his back - Progress notes on 06/25 by Lesa Burden MD He was treated possible pericarditis - Documented in DS on 06/26 by DARRION DEAN MD he had been diagnosed at one time with peptic ulcer disease - Documented in DS on 06/26 by DARRION DEAN MD unstable angina pectoris due to CAD -Documented in Hospital PNs on by Deisy Rivero I do not feel symptoms are anginal related we would seek noncaridac cause - Documented in Consultation report on 06/23 by Jhon Colby MD [employer] History of non obstructive CAD and patent stent on cath done in the last week - Documented in Cardiology PNs on 06/24 bt Roalmas Charline GERD - Documetned in H&P on 06/22 by Nilda Hopkins HTN - Documetned in H&P on 06/22 by Nilda Hopkins TREATMENTS: recommend for MRI Cervical spine to evaluate the cervical spine that is porbably of his left arm pain that may have more that one thing causing pain - Documented in Progress notes on 06/25 by Lesa Burden MD Pericarditis with colchicine and high dose NSAID - Documented in DS on 06/26 by DARRION DEAN MD placed empirically on carafate in addition to protonix as a trial - Documented in DS on 06/26 by D[address]ION DEAN MD CT chest . (This form is maintained as a part of the permanent medical record) 2014 [employer]. All Rights Reserved [email or web address] [not provided] [email or web address]
--- NOTE | 2019-06-30 12:10 | EKG ---
Test Reason : CHEST PAON Blood Pressure : / mmHG Vent. Rate : 098 BPM Atrial Rate : 098 BPM P-R Int : 146 ms QRS Dur : 084 ms QT Int : 368 ms P-R-T Axes : 061 012 039 degrees QTc Int : 469 ms Normal sinus rhythm Normal ECG Confirmed by MAX FAN D.O. ([id number]), manuscript editor JUDIT CARRILLO ([id number]) on 06/30/2019 12:10:36 PM Referred By: Confirmed By:MAX FAN D.O.
== END 2019-06-26 18:21 | DRG 313 ==
LOC: ERS 15:08 → EEVIPCON 15:08 → 2SW 22:00 → OBSVTOIN 22:00
PROVIDERS: ADMIT Internal Medicine; ATTEND Internal Medicine
DX: R07.89 Other chest pain (principal); I25.110 Atherosclerotic heart disease of native coronary artery with unstable angina pectoris; E78.5 Hyperlipidemia, unspecified; I10 Essential (primary) hypertension; K21.9 Gastro-esophageal reflux disease without esophagitis; J45.909 Unspecified asthma, uncomplicated; F31.9 Bipolar disorder, unspecified; N40.0 Benign prostatic hyperplasia without lower urinary tract symptoms; I25.2 Old myocardial infarction; Z88.0 Allergy status to penicillin; Z86.718 Personal history of other venous thrombosis and embolism; Z95.5 Presence of coronary angioplasty implant and graft; Z98.890 Other specified postprocedural states; Z87.891 Personal history of nicotine dependence; Z91.041 Radiographic dye allergy status; Z88.2 Allergy status to sulfonamides; Z88.7 Allergy status to serum and vaccine; Z79.82 Long term (current) use of aspirin; Z79.02 Long term (current) use of antithrombotics/antiplatelets
CPT/HCPCS: 36415; 71045; 71275; 72156; 72191; 74175; 80048; 80053; 82550; 82565; 83036; 83690; 84484; 85014; 85018; 85025; 85027; 85049; 85379; 93005; 93010; 96365; 96375; J1200; J1650; J1720; J1885; J2270; J2765; J2930; Q9966; Q9967; S0028

== ENCOUNTER 2019-06-28 02:37 | Emergency (ER) | payer OTHER ==
--- NOTE | 2019-06-28 06:59 | RAD ---
CHEST 1 VIEW: Date: 06/28/19 INDICATION: History of chest pain. COMPARISON: Prior exam dated 06/22/19. FINDINGS: Lungs are clear. Heart size is normal. No acute osseous abnormality is evident. IMPRESSION: No acute abnormality. POS: BH
--- NOTE | 2019-06-30 12:20 | EKG ---
Test Reason : Blood Pressure : / mmHG Vent. Rate : 073 BPM Atrial Rate : 073 BPM P-R Int : 146 ms QRS Dur : 086 ms QT Int : 422 ms P-R-T Axes : 060 010 025 degrees QTc Int : 464 ms Normal sinus rhythm Normal ECG Confirmed by ERWIN IRIZARRY M.D. ([id number]), commissioning editor JUDIT CARRILLO ([id number]) on 06/30/2019 12:20:20 PM Referred By: Confirmed By:ERWIN IRIZARRY M.D.
== END 2019-06-28 03:57 | disposition home or self-care (01) ==
LOC: ERS 02:37
DX: R07.2 Precordial pain (principal); J45.909 Unspecified asthma, uncomplicated; E78.5 Hyperlipidemia, unspecified; I25.2 Old myocardial infarction; K21.9 Gastro-esophageal reflux disease without esophagitis; F31.9 Bipolar disorder, unspecified; Z87.891 Personal history of nicotine dependence; Z79.82 Long term (current) use of aspirin; Z79.01 Long term (current) use of anticoagulants; Z79.899 Other long term (current) drug therapy
CPT/HCPCS: 36415; 71045; 83880; 84484; 93005